=== PATIENT | female | born 2000 | race Hispanic/Latino ===

== ENCOUNTER 2024-05-15 16:10 | Inpatient (IN) | payer OTHER, SELFPAY ==
[2024-05-15] MEDS ORDERED: ACETAMINOPHEN 500 MG TAB ONE (16:59)
[2024-05-15] MEDS ORDERED: NA CHLORIDE 0.9% 1,000 ML ONE ×3 (16:59→19:55)
[2024-05-15 17:39] LABS: Absolute Lymphocytes (CBC) 0.9 K/uL (0.7-4.9); Absolute Monocytes 0.6 K/uL (0.1-1.3); Absolute Neutrophil 3.6 K/uL (1.8-8.0); Basophils % 0.4 % (0-1.3); Eosinophils % 0.4 % (0-4.4); Hemoglobin 15.5 g/dL (12.0-15.0); Lymphocytes % 17.4 % (15.3-44.8); MCH 29.9 pg (27.0-35.0); MCHC 33.7 g/dL (32.0-36.0); MCV 88.7 fL (80-100); MPV 8.5 fL (7.6-11.3); Monocytes % 11.7 % (3.3-12.3); Neutrophils % 70.1 % (41.7-73.7); Nucleated Red Blood Cells % 0.5 % (0-0); Platelets 213 thou/uL (152-406); RBC Red Blood Cell Count 5.19 M/uL (3.86-4.86); Red Cell Distribution Width 14.4 % (12.1-15.2)
[2024-05-15 17:40] LABS: PT Prothrombin Time 10.3 SECONDS (9.4-12.5); Protime INR 0.92
[2024-05-15 17:47] LABS: SARS-CoV-2 Antigen CONTROL BLUE LINE VIS/BG OK; SARS-CoV-2 Antigen Rapid Res Negative (Negative)
[2024-05-15] MEDS ORDERED: IBUPROFEN 400 MG TAB ONE (17:52)
[2024-05-15 17:54] LABS: Specific Gravity 1.005 (1.005-1.030); Sqamous Epithelial <5 /HPF (None Seen); Urine Bacteria <20 /HPF (<20); Urine Bilirubin NEGATIVE (Negative); Urine Blood 2+ (Negative); Urine Clarity Clear (Clear); Urine Color Colorless (Yellow); Urine Culture Reflex Order NOT NEEDED; Urine Glucose NEGATIVE (Negative); Urine Ketones TRACE (Negative); Urine Microscopic Reflex YN ORDER UMIC; Urine Nitrite NEGATIVE (Negative); Urine Protein NEGATIVE (Negative); Urine RBC <5 /HPF (None Seen); Urine Urobilinogen Normal (Normal); Urine WBC <5 /HPF (<5); Urine pH 6.5 (5.0-7.0)
[2024-05-15 17:58] LABS: Albumin 3.3 g/dL (3.4-5.0); Albumin/Globulin Ratio 0.6 (1.1-1.8); Anion Gap 10.3 mEq/L (5.0-15.0); Bilirubin Total 0.7 mg/dL (0.2-1.0); Globulin 5.1 g/dL (2.3-3.5); Potassium 3.3 mEq/L (3.5-5.1); Protein, Total 8.4 g/dL (6.4-8.2)
--- NOTE | 2024-05-15 18:16 | RAD REPORT ---
EXAMINATION: ONE VIEW CHEST XR CLINICAL INDICATION: Female, 23 years old.,COUGH TECHNIQUE: Frontal chest projection is submitted. Examination is limited by patient positioning and t echnique. COMPARISON: No prior exam. FINDINGS: The lungs are well inflated and clear. No pneumothorax or sizable effusion. The heart is normal in s ize. Mediastinal contours are unremarkable. IMPRESSION: No acute intrathoracic abnormalities.
[2024-05-15 18:17] LABS: Specific Gravity 1.005 (1.005-1.030)
--- NOTE | 2024-05-15 19:43 | RAD REPORT ---
EXAM: CT CHEST, ABDOMEN AND PELVIS WITH CONTRAST CLINICAL INDICATION: Female, 23 years old. fever, tachycardic, mottled TECHNIQUE: CT chest, abdomen, and pelvis was performed, following the administration of contrast, as per department protocol. Axial, sagittal and coronal reconstructions were obtained. One or more of the following dose reduction techniques were used: Automated exposure control, adjustment of the mA a nd/or kV according to patient size, and/or iterative reconstruction. Unless otherwise specified, incidental findings do not require dedicated imaging follow-up. COMPARISON: No prior exam. FINDINGS: LUNGS AND AIRWAYS: Left lingular small opacity favoring atelectasis. No other evidence of airspace or interstitial process. No nodules. PLEURA: No pleural effusion. No pneumothorax. MEDIASTINUM AND LYMPH NODES: No mediastinal mass or fluid collection. Normal size mediastinal, hilar, and axillary lymph nodes. THORACIC AORTA: Normal caliber and configuration. PULMONARY ARTERIES: Normal caliber. OSSEOUS STRUCTURES AND CHEST WALL: Intact. LIVER: Normal in size and contour. No focal lesion or biliary dilitation. BILIARY SYSTEM: No suspicious abnormalities. PANCREAS: No mass, ductal dilation, or demar-pancreatic fluid. SPLEEN: Normal size. No focal lesion. ADRENALS: Normal; no mass. KIDNEYS AND URETERS: Normal size and contour. No hydronephrosis. URINARY BLADDER: Normal contour. GASTROINTESTINAL TRACT: No bowel obstruction, free air, significant free fluid or abscess. APPENDIX: No inflammatory changes in region of appendix. LYMPH NODES: No lymphadenopathy. ABDOMINAL AORTA AND OTHER VESSELS: Normal caliber aorta and IVC. MUSCULOSKELETAL: No acute or suspicious osseous abnormality. IMPRESSION: No acute or significant abnormalities seen in the chest, abdomen or pelvis.
[2024-05-15] MEDS: Levofloxacin 750mg IV 750 MG/150 ML BAG IV ONE (19:45)
--- NOTE | 2024-05-15 19:52 | EDPHYS ---
Physician Documentation [facility] Name: Danielle Pedroza Age: 23 yrs Sex: Female : 2000 Arrival Date: 05/15/2024 Time: 16:10 Bed 5 Private MD: ED Physician Terrance Dudley HPI: 05/15 18:15 This 23 yrs old Female presents to ER via Wheelchair with complaints of General rn Weakness, Fever, Cough, Pain All Over. 18:15 The patient reports fever, not measured (subjective). Onset: The symptoms/episode rn began/occurred 1 month(s) ago. Modifying factors: there are no obvious modifying factors. Severity of symptoms: At their worst the symptoms were moderate in the emergency department the symptoms are unchanged. The patient has not experienced similar symptoms in the past. Patient reports sick for 1 month. At the beginning of the month began with viral illness, upper respiratory infection, rest of family was sick as well. The rest of the family got better and she never fully recovered. Now reports worsening of symptoms over the last week or 2 with myalgias, malaise, subjective fever and chills, cough, back pain and generalized weakness.. 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 - Infectious Disease History:: Denies. - Social history:: Smoking status: Patient denies any tobacco usage or history of. - Family history:: not pertinent. - Hospitalizations: : No recent hospitalization is reported. ROS: 18:15 Constitutional: Positive for fever and chills Eyes: Negative for injury, pain, redness, rn and discharge, Neck: Negative for injury, pain, and swelling, Cardiovascular: Negative for chest pain, palpitations, and edema, Respiratory: Negative for shortness of breath, cough, wheezing, and pleuritic chest pain, Abdomen/GI: Negative for abdominal pain, nausea, vomiting, diarrhea, and constipation, Back: Positive for lower back pain MS/Extremity: Negative for injury and deformity, Skin: Negative for injury, rash, and discoloration, Neuro: Positive for generalized weakness and malaise Exam: 17:19 ECG was reviewed by the Attending Physician. rn 18:15 Constitutional: This is a well developed, well nourished patient who is awake, alert, rn and in no acute distress. Head/Face: Normocephalic, atraumatic. ENT: Dry mucous membranes, dry lips Neck: No meningismus Cardiovascular: Tachycardic, regular Respiratory: Mild tachypnea Abdomen/GI: Soft, nontender Back: No CVA tenderness or spinal percussion tenderness Skin: Mottled extremities MS/ Extremity: Pulses equal, no cyanosis. Neuro: Awake and alert, GCS 15, oriented to person, place, time, and situation. Cranial nerves II-XII grossly intact. Motor strength 4/5 in all extremities. Sensory grossly intact. Vital Signs: 16:36 BP 131 / 100; Pulse 160; Resp 28; Temp 99.1; Pulse Ox 100% ; Weight 52.62 kg; Height 5 db ft. 0 in. ; 17:00 BP 125 / 92; Pulse 123; Resp 30 S; Pulse Ox 100% on R/A; aa5 17:47 BP 122 / 91; Pulse 109; Resp 22 S; Temp 98.5(O); Pulse Ox 100% on R/A; aa5 18:14 BP 123 / 86; Pulse 103; Resp 22 S; Pulse Ox 98% on R/A; aa5 19:30 BP 124 / 90; Pulse 105; Resp 32; Temp 98; Pulse Ox 96% ; Pain 5/10; bm8 20:58 BP 122 / 88; Pulse 118; Resp 20; Temp 98; Pulse Ox 100% ; Pain 4/10; bm8 16:36 Body Mass Index 22.48 (52.62 kg, 153 cm) db 19:30 Pain Scale: Adult bm8 20:58 Pain Scale: Adult bm8 Nat Coma Score: 19:30 Eye Response: spontaneous(4). Motor Response: obeys commands(6). Verbal Response: bm8 oriented(5). Total: 15. 20:58 Eye Response: spontaneous(4). Motor Response: obeys commands(6). Verbal Response: bm8 oriented(5). Total: 15. MDM: 16:30 Medical Screening Exam initiated rn 19:03 Data reviewed: vital signs, nurses notes. ED course: Patient signed out to me by. ec2 Physician, in brief patient arrives today for feeling unwell. Patient with initial tachycardia that is since resolved, initial lactic acid. Clinically patient is improving. Sepsis reassessment complete.. 19:09 ED course: Lab work remarkable for reassuring CBC, slight hypokalemia noted on ec2 metabolic profile. UA is noninfectious appearing. Lactic acid with slight elevation 2.5. Flu and COVID testing negative. Strep testing negative. Chest x-ray shows no acute intrathoracic process. Pending CT imaging and u/s. 19:51 ED course: CPK with marked elevation. Will admit for rhabdomyolysis. CT imaging ec2 negative. Discussed with hospitalist, pending admission.. 05/15 16:31 Order name: Flu; Complete Time: 18:19 rn 05/15 16:31 Order name: Strep; Complete Time: 18:19 05/15 16:31 Order name: SARS-COV-2 Antigen Rapid; Complete Time: 18:19 05/15 16:43 Order name: Blood Culture Adult (2) 05/15 16:43 Order name: CBC with Diff; Complete Time: 18:19 05/15 16:43 Order name: CMP; Complete Time: 18:19 rn 05/15 16:43 Order name: Protime (+inr); Complete Time: 18:19 rn 05/15 16:43 Order name: Ptt, Activated; Complete Time: 18:19 05/15 16:43 Order name: Urinalysis w/ reflexes; Complete Time: 18:19 05/15 16:57 Order name: Blood Culture Adult (2) 05/15 16:57 Order name: Lactate w/ 2H reflex if indic.; Complete Time: 18:19 05/15 17:09 Order name: Test, Urine; Complete Time: 18:41 rn 05/15 17:43 Order name: Throat Culture EDCT 05/15 17:50 Order name: CK; Complete Time: 19:19 rn 05/15 17:57 Order name: Ghost Lactate-NO COLLECT Timer; Complete Time: 20:18 EDCT 05/15 19:09 Order name: Hepatitis Panel; Complete Time: 13:47 ec2 05/15 20:15 Order name: Urinalysis w/ reflexes EDCT 05/15 20:15 Order name: CBC with Automated Diff EDCT 05/15 20:15 Order name: CBC with Automated Diff; Complete Time: 13:47 [facility] 05/15 20:15 Order name: Comprehensive Metabolic Panel [facility] 05/15 20:15 Order name: Comprehensive Metabolic Panel; Complete Time: 13:47 EDCT 05/15 20:15 Order name: Creatine Phosphokinase [facility] 05/15 20:15 Order name: Creatine Phosphokinase; Complete Time: 13:47 [facility] 05/15 20:15 Order name: Creatine Phosphokinase [facility] 05/15 20:15 Order name: Creatine Phosphokinase [facility] 05/15 20:27 Order name: Lactate Sepsis 2 HR Follow-up; Complete Time: 13:47 [facility] 05/15 16:31 Order name: XRAY Chest (1 view); Complete Time: 18:19 rn 05/15 17:32 Order name: CT Chest, Abdomen, Pelvis - W/Contrast; Complete Time: 19:45 rn 05/15 18:42 Order name: US Abdomen Limited; Complete Time: 20:18 rn 05/15 16:43 Order name: Accucheck; Complete Time: 17:03 rn 05/15 16:43 Order name: Cardiac monitoring; Complete Time: 17:03 rn 05/15 16:43 Order name: EKG - Nurse/Tech; Complete Time: 16:58 rn 05/15 16:43 Order name: IV Saline Lock - Large Bore; Complete Time: 17:03 rn 05/15 16:43 Order name: Labs collected and sent; Complete Time: 17:03 rn 05/15 16:43 Order name: O2 Per Protocol; Complete Time: 17:03 rn 05/15 16:43 Order name: O2 Sat Monitoring; Complete Time: 17:03 rn 05/15 16:43 Order name: Vital Signs; Complete Time: 17:03 rn EC:19 Rate is 133 beats/min. Rhythm is regular. QRS [place] is Normal. OK interval is normal. rn QRS interval is normal. QT interval is normal. No Q waves. T waves are Normal. No ST changes noted. Clinical impression: Sinus tachycardia. Interpreted by me. Reviewed by me. Administered Medications: 17:11 Drug: Acetaminophen PO 1000 mg PO once Route: PO; aa5 18:13 Follow up: Response: No adverse reaction aa5 17:11 Drug: NS 0.9% IV 1000 ml IV at 1000 ml once; to be given as a bolus over 60 minutes aa5 Route: IV; Rate: 1000 ml; Site: right antecubital; 18:13 Follow up: IV Status: Completed infusion; IV Intake: 1000ml aa5 18:13 Drug: NS 0.9% IV 1000 ml IV at 1000 ml once; to be given as a bolus over 60 minutes aa5 Route: IV; Rate: 1000 ml; Site: right antecubital; 21:00 Follow up: Response: No adverse reaction; IV Status: Completed infusion; IV Intake: bm8 1000ml 18:13 Drug: Ibuprofen PO 800 mg PO once Route: PO; aa5 19:53 Follow up: Response: No adverse reaction bm8 20:10 Drug: levofloxacin IVPB 750 mg 150 ml IVPB once over 90 mins Volume: 150 ml; Route: bm8 IVPB; Infused Over: 90 mins; Site: right antecubital; 21:00 Follow up: Response: No adverse reaction; IV Status: Infusion continued upon admission bm8 20:10 Drug: NS 0.9% IV 125 units/hr IV at 1 calculated rate Per protocol; 125mL/hr Route: IV; bm8 Rate: 1 calculated rate; Site: right antecubital; 21:00 Follow up: Response: No adverse reaction; IV Status: Infusion continued upon admission bm8 Disposition Summary: 05/15/24 19:51 Hospitalization Ordered Notes: Hospitalization Status: Inpatient Admission ec2 Provider: Yoan Elizabeth ec2 Location: Telemetry/MedSurg (Inpatient) ec2 Condition: Stable ec2 Problem: new ec2 Symptoms: have improved ec2 Bed/Room Type: Standard ec2 Room Assignment: 209(05/15/24 20:18) rv1 Diagnosis - Rhabdomyolysis ec2 Forms: - Medication Reconciliation Form ec2 - SBAR form ec2 - Leadership Thank You Letter ec2 Signatures: Dispatcher [employer] Stacey Carrasco RN RN iw Nieto, Roman, MD MD rn Calderon, Audri, RN RN aa5 Tania Hernandez rv1 Terrance Dudley MD MD ec2 Jeffery Dumont RN RN bm8 Corrections: (The following items were deleted from the chart) 16:31 16:31 Influenza Screen (A \T\ B)+BA.LAB.BRZ ordered. EDMS EDMS 16:31 16:31 Group A Streptococcus Rapid Sc+BA.LAB.BRZ ordered. EDMS EDMS 16:31 16:31 SARS-COV-2 Antigen Rapid+I.LAB.BRZ ordered. EDMS EDMS 16:31 16:31 Chest Single View+RAD.RAD.BRZ ordered. EDMS EDMS 16:45 16:44 Chest Single View+RAD.RAD.BRZ ordered. EDMS EDMS 17:09 17:09 Test, Urine+UC.LAB.BRZ ordered. EDMS EDMS 17:32 17:32 Chest Abdomen Pelvis W Con+CT.RAD.BRZ ordered. EDMS EDMS 19:10 19:10 Acute Hepatitis Panel+SC.LAB.BRZ ordered. EDMS EDMS 19:21 16:44 LACTATE+C.LAB.BRZ ordered. EDMS EDMS 20:18 19:51 ec2 rv1
--- NOTE | 2024-05-15 19:52 | ER ---
Nurse's Notes [facility] Name: Danielle Pedroza Age: 23 yrs Sex: Female : 2000 Arrival Date: 05/15/2024 Time: 16:10 Bed 5 Private MD: Diagnosis: Rhabdomyolysis Presentation: 05/15 16:36 Chief complaint: Patient states: STATES HAS FEVER, BODY ACHES, JOINT ACHES, SORES IN db MOUTH X 2 WEEKS AND CHEST PAIN TODAY. SEEN BY A DOCTOR ON THURSDAY DX WITH "VIRUS ALL OVER MY BODY". GIVEN VALACYCLOVIR AND PROMETHAZINE. PT IS BREAST FEEDING. NOTED PT SKIN IS MOTTLED AND LIPS ARE DRY. PT APPEARS PALE IN TRIAGE. Coronavirus screen: Client denies travel out of the [place] in the last 14 days. At this time, the client does not indicate any symptoms associated with coronavirus-19. Ebola Screen: Patient negative for fever greater than or equal to 101.5 degrees Fahrenheit, and additional compatible Ebola Virus Disease symptoms Patient denies exposure to infectious person. Patient denies travel to an Ebola-affected area in the 21 days before illness onset. No symptoms or risks identified at this time. Initial Sepsis Screen: Does the patient meet any 2 criteria? HR > 90 bpm. Does the patient have a suspected source of infection? No. Patient's initial sepsis screen is negative. Risk Assessment: Do you want to hurt yourself or someone else? Patient reports no desire to harm self or others. Onset of symptoms was April 29, 2024. 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 db Triage Assessment: 16:47 General: Appears in no apparent distress. uncomfortable, Behavior is cooperative. Pain: iw Denies pain. Neuro: Level of Consciousness is awake, alert, obeys commands, Oriented to person, place, time, situation. Derm: Skin is mottled. 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 - Infectious Disease History:: Denies. - Social history:: Smoking status: Patient denies any tobacco usage or history of. - Family history:: not pertinent. - Hospitalizations: : No recent hospitalization is reported. Screenin:[facility] ED Fall Risk Assessment (Adult) History of falling in the last 3 months, aa5 including since admission No falls in past 3 months (0 pts) Confusion or Disorientation No (0 pts) Intoxicated or Sedated No (0 pts) Impaired Gait No (0 pts) Mobility Assist Device Used No (0 pt) Altered Elimination No (0 pt) Score/Fall Risk Level 0 - 2 = Low Risk Oriented to surroundings, Maintained a safe environment, Educated pt \\T\\ family on fall prevention, incl call for assistance when getting out of bed. Abuse screen: Denies threats or abuse. Tuberculosis screening: No symptoms or risk factors identified. 16:50 Nutritional screening: see GI assessment . aa5 Assessment: 16:50 General: Appears uncomfortable, ill, Behavior is calm, cooperative. Pain: Complains of aa5 pain in whole body Quality of pain is described as aching, Pain began 1 month ago Is continuous, Aggravated by repositioning, weight bearing, movement Noted to be resistant to movement. Neuro: Level of Consciousness is awake, alert, obeys commands, Oriented to person, place, time, situation, Appropriate for age. Cardiovascular: Heart tones S1 S2 present Rhythm is sinus tachycardia. Respiratory: Reports cough that is wet x 1 month ago Airway is patent Respiratory effort is even, unlabored, Respiratory pattern is regular, symmetrical. GI: Abdomen is round non-distended, Bowel sounds present X 4 quads. Abd is soft and non tender X 4 quads. Reports intolerance of fluids, intolerance of food, nausea, due to mouth sores/ulcerations Patient currently denies vomiting. : No signs and/or symptoms were reported regarding the genitourinary system. Denies burning with urination, inability to void, urinary frequency, urgency, Reports menstrual cycle 05/14/2024. EENT: Oral mucosa is dry. Lesions noted. Derm: Skin is dry, Skin is mottled, pale, Skin temperature is cool to all 4 extremities and warm to rest of body. Musculoskeletal: Reports pain in right hand, left hand, right foot, left foot, right arm, left arm, right leg and left leg. 18:14 Neuro: Level of Consciousness is awake, alert, obeys commands, Oriented to person, aa5 place, time, situation. Respiratory: Airway is patent Respiratory effort is even, unlabored, Respiratory pattern is regular, symmetrical. Derm: Skin is dry, Skin is mottled, pale, Skin temperature is cool to extremities. 19:30 Reassessment: Patient appears in no apparent distress at this time. Patient and/or bm8 family updated on plan of care and expected duration. Pain level reassessed. Patient is alert, oriented x 3, equal unlabored respirations, skin warm/dry/pink. General: Appears in no apparent distress. uncomfortable, Behavior is calm, cooperative, appropriate for age. Pain: Complains of pain in back of head and middle back Pain currently is 5 out of 10 on a pain scale. Quality of pain is described as aching, crampy. Neuro: No deficits noted. Level of Consciousness is awake, alert, obeys commands, Oriented to person, place, time, situation, Appropriate for age. Cardiovascular: Heart tones S1 S2 present Capillary refill is sluggish Patient's skin is warm and dry. Rhythm is sinus rhythm. Respiratory: Airway is patent Respiratory effort is even, unlabored, Respiratory pattern is regular, symmetrical, Breath sounds are clear bilaterally. GI: No signs and/or symptoms were reported involving the gastrointestinal system. : No signs and/or symptoms were reported regarding the genitourinary system. EENT: No signs and/or symptoms were reported regarding the EENT system. Derm: Skin is dry, Skin is mottled, pale, Skin temperature is cool. Musculoskeletal: Reports weakness in generalized pain in back of head and middle back. 20:58 Reassessment: Patient appears in no apparent distress at this time. No changes from bm8 previously documented assessment. Patient and/or family updated on plan of care and expected duration. Pain level reassessed. Patient is alert, oriented x 3, equal unlabored respirations, skin warm/dry/pink. Patient states feeling better. Patient states symptoms have improved. Vital Signs: 16:36 BP 131 / 100; Pulse 160; Resp 28; Temp 99.1; Pulse Ox 100% ; Weight 52.62 kg; Height 5 db ft. 0 in. ; 17:00 BP 125 / 92; Pulse 123; Resp 30 S; Pulse Ox 100% on R/A; aa5 17:47 BP 122 / 91; Pulse 109; Resp 22 S; Temp 98.5(O); Pulse Ox 100% on R/A; aa5 18:14 BP 123 / 86; Pulse 103; Resp 22 S; Pulse Ox 98% on R/A; aa5 19:30 BP 124 / 90; Pulse 105; Resp 32; Temp 98; Pulse Ox 96% ; Pain 5/10; bm8 20:58 BP 122 / 88; Pulse 118; Resp 20; Temp 98; Pulse Ox 100% ; Pain 4/10; bm8 16:36 Body Mass Index 22.48 (52.62 kg, 153 cm) db 19:30 Pain Scale: Adult bm8 20:58 Pain Scale: Adult bm8 Nat Coma Score: 19:30 Eye Response: spontaneous(4). Motor Response: obeys commands(6). Verbal Response: bm8 oriented(5). Total: 15. 20:58 Eye Response: spontaneous(4). Motor Response: obeys commands(6). Verbal Response: bm8 oriented(5). Total: 15. ED Course: 16:11 Patient arrived in ED. am2 16:30 León Pinto MD is Attending Physician. rn 16:41 Triage completed. db 16:47 Samantha Wise, RN is Primary Nurse. aa5 16:50 Arm band placed on Patient placed in an exam room. db 16:50 Patient has correct armband on for positive identification. Placed in gown. Bed in low aa5 position. Call light in reach. Side rails up X2. Adult w/ patient. Client placed on continuous cardiac and pulse oximetry monitoring. NIBP monitoring applied. court monitor on. Pulse ox on. NIBP on. 16:58 EKG done, by ED staff, reviewed by León Pinto MD. cc6 17:00 First set of blood cultures drawn by me. aa5 17:05 Inserted saline lock: 20 gauge in right antecubital area, using aseptic technique. aa5 Flushed with 10 mL NS. 17:10 Initial lab(s) drawn, by me, sent to lab. Second set of blood cultures drawn by me. aa5 17:13 COVID swab sent to lab. Flu and/or RSV swab sent to lab. Strep swab sent to lab. aa5 17:28 XRAY Chest (1 view) In Process Unspecified. EDMS 17:48 No provider procedures requiring assistance completed. aa5 19:00 Attending Physician role handed off by León Pinto MD ec2 19:00 Terrance Dudley MD is Attending Physician. ec2 19:00 Report given to AMANDA Gil and AMANDA Kim. aa5 19:08 CT Chest, Abdomen, Pelvis - W/Contrast In Process Unspecified. EDMS 19:24 US Abdomen Limited In Process Unspecified. EDMS 19:51 Yoan Elizabeth MD is Hospitalizing Provider. ec2 20:58 Provided Education on: need for admission. bm8 20:58 Patient admitted, IV remains in place. bm8 Administered Medications: 17:11 Drug: Acetaminophen PO 1000 mg PO once Route: PO; aa5 18:13 Follow up: Response: No adverse reaction aa5 17:11 Drug: NS 0.9% IV 1000 ml IV at 1000 ml once; to be given as a bolus over 60 minutes aa5 Route: IV; Rate: 1000 ml; Site: right antecubital; 18:13 Follow up: IV Status: Completed infusion; IV Intake: 1000ml aa5 18:13 Drug: NS 0.9% IV 1000 ml IV at 1000 ml once; to be given as a bolus over 60 minutes aa5 Route: IV; Rate: 1000 ml; Site: right antecubital; 21:00 Follow up: Response: No adverse reaction; IV Status: Completed infusion; IV Intake: bm8 1000ml 18:13 Drug: Ibuprofen PO 800 mg PO once Route: PO; aa5 19:53 Follow up: Response: No adverse reaction bm8 20:10 Drug: levofloxacin IVPB 750 mg 150 ml IVPB once over 90 mins Volume: 150 ml; Route: bm8 IVPB; Infused Over: 90 mins; Site: right antecubital; 21:00 Follow up: Response: No adverse reaction; IV Status: Infusion continued upon admission bm8 20:10 Drug: NS 0.9% IV 125 units/hr IV at 1 calculated rate Per protocol; 125mL/hr Route: IV; bm8 Rate: 1 calculated rate; Site: right antecubital; 21:00 Follow up: Response: No adverse reaction; IV Status: Infusion continued upon admission bm8 Medication: 17:30 VIS not applicable for this client. aa5 Intake: 18:13 IV: 1000ml; Total: 1000ml. aa5 21:00 IV: 1000ml; Total: 2000ml. bm8 Outcome: 19:51 Decision to Hospitalize by Provider. ec2 20:58 Admitted to Med/surg accompanied by tech, via stretcher, room 209, with chart, bm8 20:58 Condition: stable 20:58 Instructed on follow up and referral plans. Demonstrated understanding of instructions, follow-up care, medications, 21:01 Patient left the ED. bm8 Signatures: Dispatcher [employer] EDStacey Forte RN RN iw Nieto, Roman, MD MD rn Calderon, Audri, RN RN aa5 Judy Almonte am2 Araceli Laguerre RN RN Terrance Richmond MD MD ec2 Jeffery Dumont RN RN bm8 Carmen Kelly cc6 Corrections: (The following items were deleted from the chart) 16:50 16:36 Chief complaint: Patient states: STATES HAS FEVER, BODY ACHES, JOINT ACHES, SORES db IN MOUTH X 2 WEEKS. SEEN BY A DOCTOR ON THURSDAY DX WITH "VIRUS ALL OVER MY BODY". GIVEN VALACYCLOVIR AND PROMETHAZINE. db 16:57 16:36 Chief complaint: Patient states: STATES HAS FEVER, BODY ACHES, JOINT ACHES, SORES db IN MOUTH X 2 WEEKS AND CHEST PAIN TODAY. SEEN BY A DOCTOR ON THURSDAY DX WITH "VIRUS ALL OVER MY BODY". GIVEN VALACYCLOVIR AND PROMETHAZINE. PT IS db 17:31 16:45 Abuse screen: Denies threats or abuse. aa5 [facility] 17:31 16:45 Nutritional screening: No deficits noted. aa5 aa 17:31 16:45 Tuberculosis screening: No symptoms or risk factors identified. aa5 aa5 17:31 16:45 [facility] ED Fall Risk Assessment (Adult) History of falling in the last 3 months, aa5 including since admission No falls in past 3 months (0 pts) Confusion or Disorientation No (0 pts) Intoxicated or Sedated No (0 pts) Impaired Gait No (0 pts) Mobility Assist Device Used No (0 pt) Altered Elimination No (0 pt) Score/Fall Risk Level 0 - 2 = Low Risk Oriented to surroundings, Maintained a safe environment, Educated pt \\T\\ family on fall prevention, incl call for assistance when getting out of bed, aa5 21:00 20:59 Response: No adverse reaction; IV Status: Completed infusion; IV Intake: 125ml [id number]
--- NOTE | 2024-05-15 20:12 | P.HP ---
Certification for Inpatient Patient admitted to: Inpatient With expected LOS: >2 Midnights Practitioner: I am a practitioner with admitting privileges, knowledge of patient current condition, hospital course, and medical plan of care. Services: Services provided to patient in accordance with Admission requirements found in Title 42 Section 412.3 of the Code of Federal Regulations Patient History Date of Service: 05/15/24 Reason for admission: Rhabdomyolysis History of Present Illness: 23 yrs old Female with no significant past medical history brought to ER with g eneralized weakness fever cough and generalized body pain which has been going on for the last few days and has been progressively getting worse and was brought to ER. Patient states that she has been sick for the last 1 month intermittently and was started as insidiously as a viral illness like an upper respiratory tract infection along with the family who is also sick at this time time. Rest of the body became better but she continues to have body pain and generalized weakness associated with some fever and has some cough which is mucoid expectoration. Patient has severe muscle pains. Denies any chest pain or shortness of breath. Denies any nausea vomiting or diarrhea. Patient was assessed in the ER and was found to have rhabdomyolysis and was admitted for further management. She has also noticed to have elevated liver enzymes as well. Allergies ampicillin Allergy (Verified 05/15/24 20:31) Itching/Hives/Rash Home medications list reviewed: Yes Home Medications: Unobtainable 05/15/24 - Past Medical/Surgical History Past Medical History: Reviewed- Non-Contributory Past Surgical History: Reviewed- Non-Contributory - Family History Mother -: Cancer Notes: female cancer - Social History Smoking Status: Never smoker Review of Systems 10-point ROS is otherwise unremarkable Physical Examination - Vital Signs Temperature: 99.1 F Blood Pressure: 130/98 Pulse: 142 Respirations: 18 Pulse Ox (%): 95 - Physical Exam General: Alert, Oriented x3, Mild distress HEENT: Atraumatic, Normocephalic Neck: Supple Respiratory: Clear to auscultation bilaterally, Crackles/rales Cardiovascular: Normal S1 S2 Capillary refill: <2 Seconds Gastrointestinal: Soft and benign, W/out hepatosplenomegaly Musculoskeletal: No clubbing, No swelling Integumentary: No rashes Neurological: Normal speech, Normal strength at 5/5 x4 extr Lymphatics: No axilla or inguinal lymphadenopathy - Studies Laboratory Data (last 24 hrs) 05/15/24 05/15/24 05/15/24 17:10 17:10 17:10 WBC 5.20 Hgb 15.5 H Hct 46.0 H Plt Count 213 PT 10.3 INR 0.92 APTT 32.0 Sodium 135 L Potassium 3.3 L BUN 6 L Creatinine 0.46 L Glucose 95 Total Bilirubin 0.7 AST 459 H ALT 163 H Alkaline Phosphatase 90 Microbiology Data (last 24 hrs): 05/15/24 17:13 Nasopharnyx Influenza Type A Antigen Screen - Final 05/15/24 17:13 Nasopharnyx Influenza Type B Antigen Screen - Final 05/15/24 17:13 Throat Group A Streptococcus Rapid Screen - Final Assessment and Plan - Plan Rhabdomyolysis Aggressive hydration Pain control Monitor CK level daily Elevated LFTs CT did not show any acute changes Will treat ultrasound of the liver Monitor LFTs closely Will get the hepatitis panel Acute febrile illness Lactic acidosis Obtain cultures CT chest,, abdomen pelvis normal Will get a UA and will obtain cultures Start on antibiotic empirically Will change antibiotic as per sensitivity Hypokalemia Hyponatremia Will monitor electrolytes and replace accordingly GI/DVT prophylaxis Advanced directive full code Discharge Plan: Home Plan to discharge in: 48 Hours - Advance Directives Does patient have a Living Will: No Does patient have a Durable POA for Healthcare: No - Code Status/Comfort Care Code Status: Full Code Time Spent Managing Pts Care (In Minutes): 48
--- NOTE | 2024-05-15 20:14 | RAD REPORT ---
EXAMINATION: US Abdomen Exam Limited CLINICAL HISTORY: [facility] MAIN Y fever, abnormal lfts Bed Name: 5 COMPARISON: None. TECHNIQUE: Limited upper abdominal grayscale and color flow sonographic images. FINDINGS: Gallbladder: Normal. Reportedly negative sonographic Gardiner's sign. Bile ducts: No intrahepatic or extrahepatic biliary dilatation. Common bile duct measures 1 mm. Liver: Visualized portions of the liver demonstrate normal echogenicity with no suspicious findings. Fluid: No ascites. IMPRESSION: No abnormalities on right upper quadrant ultrasound.
[2024-05-15] MEDS: NA CHLORIDE 0.9% 1,000 ML IV SCH (21:00)
[2024-05-15] MEDS: IBUPROFEN 400 MG TAB PO PRN (23:27)
[2024-05-16] MEDS: METHYLPREDNISOLONE 125 MG INJ IV ONE (03:26)
[2024-05-16] MEDS: MORPHINE 2 MG/ML SYR IV PRN (03:26)
[2024-05-16] MEDS: Ringers Lactate 1,000 ML IV ONE (03:27)
[2024-05-16 04:04] LABS: Absolute Monocytes 0.5 K/uL (0.1-1.3); Absolute Neutrophil 1.7 K/uL (1.8-8.0); Basophils % 0.6 % (0-1.3); Eosinophils % 0.9 % (0-4.4); Hematocrit 35.2 % (36.0-45.0); Hemoglobin 11.9 g/dL (12.0-15.0); Lymphocytes % 30.7 % (15.3-44.8); MCH 29.7 pg (27.0-35.0); MCHC 33.8 g/dL (32.0-36.0); MCV 87.9 fL (80-100); Monocytes % 16.2 % (3.3-12.3); Neutrophils % 51.6 % (41.7-73.7); Platelets 183 thou/uL (152-406); Red Cell Distribution Width 14.3 % (12.1-15.2)
[2024-05-16 04:18] LABS: C-Reactive Protein 10.8 mg/L (<3.00); Ferritin 496.4 ng/mL (8-252)
[2024-05-16 04:20] LABS: D-Dimer 0.989 FEUug/mL (0-0.500); PTT, Activated Partial Thromb 31.3 SECONDS (24.3-36.9)
[2024-05-16 04:58] LABS: ALT/SGPT 118 U/L (13-56); AST/SGOT 358 U/L (15-37); Albumin 2.5 g/dL (3.4-5.0); Albumin/Globulin Ratio 0.7 (1.1-1.8); Alkaline Phosphatase 67 U/L (45-117); Anion Gap 8.9 mEq/L (5.0-15.0); BUN Blood Urea Nitrogen 4 mg/dL (7-18); Bicarbonate 24 mEq/L (21-32); Bilirubin Total 0.7 mg/dL (0.2-1.0); Creatine Phosphokinase 7763 U/L (26-192); Globulin 3.7 g/dL (2.3-3.5); Glucose Level 84 mg/dL (74-106); Magnesium 1.8 mg/dL (1.6-2.4); Phosphorus 2.9 mg/dL (2.5-4.9); Potassium 2.9 mEq/L (3.5-5.1); Protein, Total 6.2 g/dL (6.4-8.2); Sodium Level 139 mEq/L (136-145)
[2024-05-16 04:59] LABS: Glomerular Filtration Rate 159 ml/min (=/>90)
[2024-05-16 05:24] LABS: Hepatitis B Core IgM Nonreactive (Nonreactive); Hepatitis B surface AG Interp. Nonreactive (Nonreactive); Hepatitis C Virus Ab Nonreactive (Nonreactive)
[2024-05-16 05:25] LABS: HBsAG Nonreactive Report Report
[2024-05-16] MEDS: KCL 20 MEQ/100 mL IVPB 20 MEQ/100 ML BAG IV SCH (05:42)
--- NOTE | 2024-05-16 07:27 | RAD REPORT ---
Exam:C Spine Ap/Lat CLINICAL INDICATION: Neck pain Findings: No fracture or dislocation seen. No significant bone or joint abnormalities displayed
--- NOTE | 2024-05-16 07:27 | RAD REPORT ---
Exam:Knee Left 2 View HISTORY: Left knee pain FINDINGS: No fracture or dislocation seen No significant bone or joint abnormality is displayed
--- NOTE | 2024-05-16 07:37 | RAD REPORT ---
EXAM: Right upper quadrant ultrasound. CLINICAL HISTORY: Elevated liver function tests enzymes COMPARISON: May 15, 2024 FINDINGS: A gallstone is not seen. Gallbladder wall not thickened. Biliary tree normal caliber. Liver has a normal echotexture. An area of focal fatty sparing left lobe of the liver.. Hepatopedal f low IMPRESSION: No significant abnormalities displayed
[2024-05-16] MEDS: FLU (Fluarix Triv) TS24-25(6MOS UP)/PF 45 MCG/0.5 ML Syringe IM ONE (07:45)
[2024-05-16] MEDS: CEFTRIAXONE 1,000 MG in NA CHLORIDE 0.9% 50 ML IVPB SCH (08:35)
[2024-05-16] MEDS: AZITHROMYCIN IV 500 MG in NA CHLORIDE 0.9% 250 ML IVPB SCH (08:37)
[2024-05-16] MEDS: ONDANSETRON 4 MG/2 ML VIAL IV PRN (09:50)
[2024-05-16] MEDS: MAGNESIUM SULFATE 1 gm IVPB 1 GM/100 ML BAG IV ONE (14:08)
--- NOTE | 2024-05-16 16:05 | P.PN ---
Subjective Date of Service: 05/16/24 Chief Complaint: Rhabdomyolysis Patient is complaining of generalized bodily pains. She has had no fever. She reports nausea and has been dry heaving. Physical Examination - Vital Signs Temperature: 98 F Blood Pressure: 121/75 Pulse: 98 Respirations: 16 Pulse Ox (%): 97 - Studies Laboratory Data (last 24 hrs) 05/15/24 05/15/24 05/15/24 17:10 17:10 17:10 WBC 5.20 Hgb 15.5 H Hct 46.0 H Plt Count 213 PT 10.3 INR 0.92 APTT 32.0 Sodium 135 L Potassium 3.3 L BUN 6 L Creatinine 0.46 L Glucose 95 Total Bilirubin 0.7 AST 459 H ALT 163 H Alkaline Phosphatase 90 Microbiology Data (last 24 hrs): 05/15/24 17:13 Nasopharnyx Influenza Type A Antigen Screen - Final 05/15/24 17:13 Nasopharnyx Influenza Type B Antigen Screen - Final 05/15/24 17:13 Throat Group A Streptococcus Rapid Screen - Final Assessment And Plan - Plan Physical examination General: Alert and oriented x3, NAD, HEENT: Anicteric sclera Neck: Supple, no elevated JVD Heart: Heart sounds 1 and 2 normal, regular rhythm, tachycardic, no pedal edema Lungs: Clear to auscultation bilaterally, adequate breath sounds bilaterally, no rhonchi or crackles. Abdomen: Soft, nondistended, nontender, normal bowel sounds. Extremities: No tenderness, no deformity Skin: Normal skin turgor, no rash, no nodules or ulcers. Neuro: No focal motor deficit. Normal speech. Psychiatry: Normal mood, no agitation. Assessment and plan Rhabdomyolysis Elevated LFT Acute febrile illness Lactic acidosis Hyponatremia Hypokalemia Plan: Rhabdomyolysis Elevated LFT Acute febrile illness Lactic acidosis Patient's symptoms preceded by a bout of flulike symptoms Rhabdomyolysis likely secondary to acute viral illness. Acute phase reactants-CRP and ferritin are elevated. Aggressive IV hydration Monitor CK levels daily Monitor renal function Elevated LFT likely related to rhabdomyolysis. Hepatitis panel is unremarkable Lactic acidosis resolved UA is negative for UTI Chest x-ray shows no acute disease. CBC shows increased monocyte differential suggesting viral infection. Supportive measures with analgesics, antiemetics. Hypokalemia Hyponatremia IV NS. Replace potassium IV and orally Monitor and correct electrolytes as needed GI/DVT prophylaxis: Lovenoc Advanced directive: full code
[2024-05-16] MEDS: ENOXAPARIN 40 MG/0.4 ML SQ SCH (17:05)
[2024-05-16 23:14] LABS: Magnesium 1.9 mg/dL (1.6-2.4); Potassium 3.6 mEq/L (3.5-5.1)
[2024-05-17 06:22] LABS: Anion Gap 8.3 mEq/L (5.0-15.0); PT Prothrombin Time 10.8 SECONDS (9.4-12.5); Potassium 3.3 mEq/L (3.5-5.1); Protime INR 1.03
[2024-05-17 06:23] LABS: Absolute Lymphocytes (CBC) 1.3 K/uL (0.7-4.9); Absolute Monocytes 0.8 K/uL (0.1-1.3); Absolute Neutrophil 2.3 K/uL (1.8-8.0); Eosinophils % 0.2 % (0-4.4); Hematocrit 32.5 % (36.0-45.0); Hemoglobin 11.3 g/dL (12.0-15.0); Lymphocytes % 29.6 % (15.3-44.8); MCH 30.6 pg (27.0-35.0); MCHC 34.9 g/dL (32.0-36.0); MCV 87.8 fL (80-100); MPV 8.3 fL (7.6-11.3); Monocytes % 17.9 % (3.3-12.3); Neutrophils % 51.3 % (41.7-73.7); Nucleated Red Blood Cells % 0.1 % (0-0); Platelets 197 thou/uL (152-406); RBC Red Blood Cell Count 3.69 M/uL (3.86-4.86); Red Cell Distribution Width 14.3 % (12.1-15.2)
[2024-05-17] MEDS: POTASSIUM 25 MEQ EFFERV TAB PO ONE (10:16)
[2024-05-17] MEDS: POTASSIUM 25 MEQ EFFERV TAB ONE (12:38)
--- NOTE | 2024-05-17 13:25 | P.PN ---
Date of Service: 05/17/24 Subjective: feeling better today appetite slowly improving no events overnight family updated at bedside reports urine improving - not as dark/red ROS: 10 point ROS as noted above, otherwise negative Physical Exam: GEN: Alert, oriented, NAD, dry/cracked lips CV: Regular rate and rhythm, no edema Pulm: Nonlabored respirations on room air, clear bilaterally ABD: soft, nontender, nondistended Neuro: Normal speech, normal affect Problem List: Rhabdomyolysis, suspect secondary to viral illness Elevated LFTs Lactic acidosis, resolved Hypokalemia Hyponatremia, resolved Rhabdomyolysis, suspect secondary to viral illness Elevated LFTs Lactic acidosis, resolved Patient's symptoms preceded by a bout of flulike symptoms. Rhabdomyolysis likely secondary to acute viral illness. Elevated LFT likely related to rhabdomyolysis - improving Hepatitis panel is unremarkable Lactic acidosis resolved Blood cx (05/15): NGTD CXR negative for any acute findings continue IV fluids Continue to monitor renal function Trend CPK, LFTs. Improving daily Analgesics, antiemetics as needed. Hypokalemia Hyponatremia, improved continue IV fluids Monitor and replete electrolytes as needed improving VTE: Lovenox Code: Full Dispo: Home Pending CPK improves, LFTs improve Time Spent Managing Pts Care (In Minutes): 55
[2024-05-17] MEDS: KCL 20 MEQ/100 mL IVPB 20 MEQ/100 ML BAG IV SCH (14:29)
[2024-05-18] MEDS: ACETAMINOPHEN 325 MG TABLET PO PRN (02:49)
[2024-05-18 05:52] LABS: Albumin 2.4 g/dL (3.4-5.0); Albumin/Globulin Ratio 0.7 (1.1-1.8); Anion Gap 5.7 mEq/L (5.0-15.0); Bilirubin Total 0.5 mg/dL (0.2-1.0); Globulin 3.6 g/dL (2.3-3.5); Magnesium 1.9 mg/dL (1.6-2.4); Potassium 3.7 mEq/L (3.5-5.1)
[2024-05-18] MEDS: KCL 20 MEQ/100 mL IVPB 20 MEQ/100 ML BAG IV SCH (09:11)
--- NOTE | 2024-05-18 10:55 | P.PN ---
Date of Service: 05/18/24 Subjective: pain improving still feeling very tired / run down; body aches/soreness afebrile ROS: 10 point ROS as noted above, otherwise negative Physical Exam: GEN: Alert, oriented, NAD, dry/cracked lips CV: Regular rate and rhythm, no edema Pulm: Nonlabored respirations on room air, clear bilaterally ABD: soft, nontender, nondistended Neuro: Normal speech, normal affect Problem List: Rhabdomyolysis, suspect secondary to viral illness Elevated LFTs Lactic acidosis, resolved Hypokalemia Hyponatremia, resolved Rhabdomyolysis, suspect secondary to viral illness Elevated LFTs Lactic acidosis, resolved Patient's symptoms preceded by a bout of flulike symptoms. Rhabdomyolysis likely secondary to acute viral illness. Elevated LFT likely related to rhabdomyolysis - improving Hepatitis panel is unremarkable Lactic acidosis resolved Blood cx (05/15): NGTD CXR negative for any acute findings continue IV fluids Continue to monitor renal function Trend CPK, LFTs daily Analgesics, antiemetics as needed. continues with sinus tachycardia - with minimal exertion feels more short of breath / winded easily check formal CTA to r/o PE possible post-viral/rhabdo /deconditioning appears euvolemic, doubt seocndary to hypotension at this point, strict i/o's cardio consult check echo Hypokalemia Hyponatremia, improved continue IV fluids Monitor and replete electrolytes as needed improving VTE: Lovenox Code: Full Dispo: Home Pending CPK improves, LFTs improve tachycardia improves Time Spent Managing Pts Care (In Minutes): 55
--- NOTE | 2024-05-18 20:57 | RAD REPORT ---
EXAMINATION: CTA CHEST AORTA CLINICAL INDICATION: Female, 23 years old [facility] MA[facility] r/o PE TECHNIQUE: This examination was performed according to an angiographic protocol with 3D post-processi ng. This involves 3D reconstructions, MIPs, volume rendered images and/or shaded surface rendering. One or more of the following dose reduction techniques were used: Automated exposure control, adjustm ent of the mA and/or kV according to patient size, and/or iterative reconstruction. Unless otherwise specified, incidental findings do not require dedicated imaging follow-up. [id number]. COMPARISON: CT 05/15/24 FINDINGS: LOWER NECK: Visualized thyroid gland and soft tissues are normal. LUNGS AND AIRWAYS: Motion artifact. Subsegmental atelectasis versus scarring in the lingula and later al aspect of the right lower lobe.No suspicious and/or stable pulmonary nodules. PLEURA: No pleural effusion. No pneumothorax. Hemidiaphragms are normally positioned. MEDIASTINUM AND LYMPH NODES: No mediastinal mass or fluid collection. Normal size mediastinal, hilar, and axillary lymph nodes. THORACIC AORTA: No thoracic aortic aneurysm. PULMONARY ARTERIES: HEART: No coronary calcifications.No significant pericardial effusion. OSSEOUS STRUCTURES AND CHEST WALL: UPPER ABDOMEN: No significant abnormalities. IMPRESSION: Normal caliber and configuration of the thoracic aorta without acute changes. No pulmonary embolus.
[2024-05-19 04:56] LABS: Absolute Monocytes 0.7 K/uL (0.1-1.3); Absolute Neutrophil 2.8 K/uL (1.8-8.0); Basophils % 0.7 % (0-1.3); Hematocrit 36.5 % (36.0-45.0); Hemoglobin 12.5 g/dL (12.0-15.0); Lymphocytes % 22.6 % (15.3-44.8); MCH 29.9 pg (27.0-35.0); MCHC 34.3 g/dL (32.0-36.0); MCV 87.1 fL (80-100); MPV 8.5 fL (7.6-11.3); Monocytes % 14.8 % (3.3-12.3); Neutrophils % 60.9 % (41.7-73.7); Nucleated Red Blood Cells % 0.1 % (0-0); Platelets 218 thou/uL (152-406); RBC Red Blood Cell Count 4.19 M/uL (3.86-4.86); Red Cell Distribution Width 14.2 % (12.1-15.2)
[2024-05-19 05:37] LABS: Albumin 2.3 g/dL (3.4-5.0); Albumin/Globulin Ratio 0.6 (1.1-1.8); Anion Gap 11.3 mEq/L (5.0-15.0); Bilirubin Total 0.5 mg/dL (0.2-1.0); C-Reactive Protein 7.91 mg/L (<3.00); Globulin 3.8 g/dL (2.3-3.5); Magnesium 1.8 mg/dL (1.6-2.4); Potassium 3.3 mEq/L (3.5-5.1); Protein, Total 6.1 g/dL (6.4-8.2); Thyroid Stimulating Hormone 2.07 uIU/mL (0.358-3.740)
[2024-05-19] MEDS: POTASSIUM CL SA 10 MEQ TAB PO ONE ×2 (06:41→14:12)
[2024-05-19] MEDS: MAGNESIUM SULFATE 1 gm IVPB 1 GM/100 ML BAG IV ONE ×2 (08:23→15:28)
[2024-05-19] MEDS: NA CHLORIDE 0.9% 1,000 ML IV SCH ×2 (08:24→14:13)
--- NOTE | 2024-05-19 08:42 | P.PN ---
Date of Service: 05/19/24 Subjective: In sinus tachycardia, HR 110s at rest. Up to 140-150s with light activity denies chest pain but reports feeling more tired with movement left leg pain ~same as when came in - at anterior tibial area abdominal/flank pain improving afebrile ROS: 10 point ROS as noted above, otherwise negative Physical Exam: GEN: Alert, NAD, dry/cracked lips CV: Sinus Tachycardia, no edema Pulm: Nonlabored respirations on room air, clear bilaterally ABD: soft, nontender, nondistended MSK: tenderness to moderate palpation of anterior tibial area of left leg, L thigh muscles, lower back, arms Neuro: Normal speech, normal affect Problem List: Rhabdomyolysis, suspect secondary to viral illness Elevated LFTs Lactic acidosis, resolved Sinus Tachycardia Hypokalemia Hyponatremia, resolved Rhabdomyolysis, suspect secondary to viral illness Elevated LFTs Lactic acidosis, resolved Patient's symptoms preceded by a bout of flulike symptoms. Rhabdomyolysis likely secondary to acute viral illness. Elevated LFT likely related to rhabdomyolysis Hepatitis panel is unremarkable Lactic acidosis resolved Blood cx (05/15): NGTD Continue to monitor renal function Analgesics, antiemetics as needed. continue IV fluids Trend CPK, LFTs daily. CPK, LFTs worse 05/19 Nephrology consulted thyroid levels WNL SARAHY pending, check RF Sinus Tachycardia Sinus Tachy on Telemetry. No arrhythmias noted. possible post-viral/rhabdo /deconditioning appears euvolemic, doubt secondary to hypovolemia at this point CTA chest negative for PE or any acute findings. Cardiology consulted Echo ordered to eval Trend troponins. Monitor on Telemetry Start metoprolol 25 mg BID Hypokalemia Hyponatremia, improved continue IV fluids Monitor and replete electrolytes as needed improving VTE: Lovenox Code: Full Dispo: Home Pending CPK improves, LFTs improve tachycardia improves Time Spent Managing Pts Care (In Minutes): 55
--- NOTE | 2024-05-19 09:53 | P.CNS ---
Date of Consult: 05/19/24 Chief Complaint: Rhabdomyolysis History of Present Illness: Patient with no significant PMH presented with generalized weakness, viral illness, rhabdomyolysis, cardiology was consulted for sinus tachycardia, patient denies chest pain, no SOB, only report palpitations on exertion. Allergies ampicillin Allergy (Verified 05/15/24 20:31) Itching/Hives/Rash Home medications list reviewed: Yes Home Medications: NK [No Home Meds] 05/16/24 - Past Medical/Surgical History Diabetic: No -: Vaginal Delivery - Family History Mother Medical History: Cancer Notes: female cancer - Social History Alcohol use: No CD- Drugs: No Caffeine use: Yes Place of Residence: Home Review of Systems 10-point ROS is otherwise unremarkable Physical Examination Temp Pulse Resp BP Pulse Ox 97.8 F 109 H 18 115/73 98 05/19/24 08:00 05/19/24 08:00 05/19/24 08:00 05/19/24 08:00 05/19/24 08:00 General: Alert, In no apparent distress HEENT: Atraumatic, PERRLA, Mucous membr. moist/pink, EOMI, Sclerae nonicteric Neck: Supple, 2+ carotid pulse no bruit, No LAD, Without JVD or thyroid abnormality Respiratory: Clear to auscultation bilaterally, Normal air movement Cardiovascular: Regular rate/rhythm, Normal S1 S2 Gastrointestinal: Normal bowel sounds, No tenderness Musculoskeletal: No tenderness Integumentary: No rashes Neurological: Normal gait, Normal speech, Normal tone, Normal affect Lymphatics: No axilla or inguinal lymphadenopathy - Problems (1) Sinus tachycardia Current Visit: Yes Status: Acute Plan: patient tele was reviewed, only shows sinus tachycardia, no other arrhythmias seen. recommend starting metoprolol 25 mg po BID Continue hydration and monitor over tele get echo (2) Rhabdomyolysis Current Visit: Yes Status: Acute Plan: continue IV hydration. patient might need to follow up with rheumatology as outpatient.
[2024-05-19] MEDS: METOPROLOL TAR 25 MG TAB PO ONE (10:22)
[2024-05-19 11:33] LABS: Anti-Nuclear Antibody Screen Negative (Negative)
--- NOTE | 2024-05-19 12:10 | EKG ---
Test Date: 2024-05-15 Test Time: 16:54:41 Coordinator Of Library Services: JASWINDER MEASUREMENT RESULTS: Intervals: Rate: 133 WY: 136 QRSD: 66 QT: 296 QTc: 440 [place]: P: 59 WY: 136 QRS: 39 T: 14 INTERPRETIVE STATEMENTS: Sinus tachycardia Otherwise normal ECG No previous ECG available for comparison Electronically Signed On 05-19-24 12:07:51 TELEPHONE [employer]PER[employer] SUPERVISOR by Andrew Hoffman
[2024-05-19] MEDS: NA CHLORIDE 0.9% 1,000 ML IV ONE (14:13)
[2024-05-19 14:36] LABS: Magnesium 2.3 mg/dL (1.6-2.4); Thyroid Stimulating Hormone 2.51 uIU/mL (0.358-3.740)
--- NOTE | 2024-05-19 15:26 | CON ---
Date of Consultation: 05/19/2024 Reason For Consultation: Elevated BUN and creatinine. History Of Present Illness: This is a 23-year-old female without any significant past medical histor y. Apparently, patient had upper respiratory infection a couple of weeks ago. For that reason, chary ent started using home remedy with Tylenol and ibuprofen 2-3 tablets daily. Patient came to the hosp ital complaining from progressive chest tightness and muscle cramps. Found to have rhabdomyolysis. The patient was started on hydration. Upon arrival to the hospital, CK above 7000. After hydration, CK down to 6010, today bounced back to 8000. For that reason, we have been consulted. The patient has been on ibuprofen during the hospitalization. The patient had hypokalemia and hypomagnesemia. TSH was checked and there is no hypothyroidism. Past Medical History: Negative. Past Surgical History: Negative. Allergies: TO AMPICILLIN. Home Medications: Include Tylenol, ibuprofen. Family History: Positive for cancer. Social History: Denied smoking. Denied drinking. Denied drugs abuse. Review of Systems: Head and Neck: No red eye. No ear pain. GI: No nausea. No vomiting. : No polyuria. No dysuria. No hematuria. LIFE SCIENTIST: No vaginal discharge. Respiratory: Has no shortness of breath. Cardiovascular: No chest pain. Endocrine: No polydipsia. Skin: No rash. Neuro: Has muscle cramp. Musculoskeletal: Muscle cramp and weakness. Physical Examination: General: When I saw the patient, the patient sitting in the chair. Vital Signs: Blood pressure 113 /78, pulse of 109. Chest: Clear to auscultation. Extremities: No edema. Neurologic: Alert. No focality. Laboratory Data: WBC 4.6, hemoglobin 12.5. Sodium 134, potassium 3.3, bicarb 25, BUN 6, creatinine 0.2, calcium 7.9, phosphorus 4, magnesium 1.8. CK 8605, albumin 2.3, corrected calcium is 9.1. TSH 2.07. Urinalysis: Negative for infection. SARAHY negative. Hepatitis was negative. Current Medications: In the hospital include ibuprofen 400 q.6, metoprolol, Lovenox, IV fluid at 50 per hour. Assessment And Plan: 1.Rhabdomyolysis secondary to upper respiratory, bounced back. I am going to increase IV fluid to 1 25 normal saline and we will bolus the patient. We will continue aggressive hydration. I am going t o go ahead and give the patient another dose of magnesium and we will replenish the potassium aggress ively. 2.Hypokalemia, hypomagnesemia. We will replenish as above. 3.Unprovoked rhabdomyolysis, questionable if it is secondary to upper respiratory. Hypothyroidism h as been ruled out. I am going to send for urine drug screen and send for rheumatoid factor. We will continue aggressive hydration and we will follow up. 4.Hyponatremia, depletional. Continue hydration. TORO/ANTONI Voice ID: [id number] Report ID: [id number]
[2024-05-19] MEDS: METOPROLOL TAR 25 MG TAB PO SCH (18:01)
[2024-05-20 04:51] LABS: Absolute Eosinophils 0.1 K/uL (0-0.5); Absolute Monocytes 0.5 K/uL (0.1-1.3); Absolute Neutrophil 2.1 K/uL (1.8-8.0); Basophils % 0.7 % (0-1.3); Eosinophils % 2.1 % (0-4.4); Hematocrit 33.6 % (36.0-45.0); Hemoglobin 11.7 g/dL (12.0-15.0); Lymphocytes % 26.6 % (15.3-44.8); MCH 30.5 pg (27.0-35.0); MCHC 34.8 g/dL (32.0-36.0); MCV 87.6 fL (80-100); MPV 8.3 fL (7.6-11.3); Monocytes % 14.3 % (3.3-12.3); Neutrophils % 56.3 % (41.7-73.7); Nucleated Red Blood Cells % 0.1 % (0-0); Platelets 208 thou/uL (152-406); RBC Red Blood Cell Count 3.84 M/uL (3.86-4.86); Red Cell Distribution Width 14.5 % (12.1-15.2)
[2024-05-20 05:08] LABS: ALT/SGPT 187 U/L (13-56); AST/SGOT 494 U/L (15-37); Albumin 2.1 g/dL (3.4-5.0); Albumin/Globulin Ratio 0.6 (1.1-1.8); Alkaline Phosphatase 70 U/L (45-117); Anion Gap 8.6 mEq/L (5.0-15.0); BUN Blood Urea Nitrogen 3 mg/dL (7-18); Bicarbonate 25 mEq/L (21-32); Bilirubin Total 0.4 mg/dL (0.2-1.0); C-Reactive Protein 5.42 mg/L (<3.00); Globulin 3.6 g/dL (2.3-3.5); Glucose Level 102 mg/dL (74-106); Magnesium 1.9 mg/dL (1.6-2.4); Phosphorus 3.4 mg/dL (2.5-4.9); Potassium 3.6 mEq/L (3.5-5.1); Protein, Total 5.7 g/dL (6.4-8.2); Sodium Level 138 mEq/L (136-145)
[2024-05-20 05:22] VITALS: BMI 22.8
[2024-05-20 05:28] LABS: Creatine Phosphokinase 8973 U/L (26-192); Glomerular Filtration Rate 159 ml/min (=/>90)
[2024-05-20 07:19] LABS: Rheumatoid Factor NEG (NEG)
[2024-05-20] MEDS: POTASSIUM CL SA 10 MEQ TAB PO ONE (09:03)
--- NOTE | 2024-05-20 11:35 | P.PN ---
Date of Service: 05/20/24 Subjective: heart rate improved to 80-90s at rest feels more swollen; mostly in face and lower extremities, otherwise feeling overall improvement breathing okay on room air leg pain improving afebrile all started with sore throat, then had fever.s chills in early april general malaise, minimal appetite continued rest of the month, then ~May developed the lower leg / body aches, oral blisters ROS: 10 point ROS as noted above, otherwise negative Physical Exam: GEN: Alert, NAD, dry/cracked lips CV: Regular Rate and rhythm, no edema Pulm: Nonlabored respirations on room air, clear bilaterally ABD: soft, nontender, nondistended MSK: tenderness to moderate palpation of anterior tibial area of left leg, L thigh muscles, lower back, arms Neuro: Normal speech, normal affect Problem List: Rhabdomyolysis, suspect secondary to viral illness Elevated LFTs Lactic acidosis, resolved Sinus Tachycardia Hypokalemia, resolved Hyponatremia, resolved Rhabdomyolysis, suspect secondary to viral illness Elevated LFTs Lactic acidosis, resolved Patient's symptoms preceded by a bout of flulike symptoms. Rhabdomyolysis likely secondary to acute viral illness. Elevated LFT likely related to rhabdomyolysis Hepatitis panel is unremarkable Lactic acidosis resolved Blood cx (05/15): NGTD Continue to monitor renal f unction Analgesics, antiemetics as needed. CPK, LFTs initially improving, now uptrending last 48hrs. seems to be plateauing Nephrology consulted continue IV fluids; increased 05/19 per nephro thyroid levels WNL SARAHY negative RF negative. symptomatic improving may need albumin/lasix Sinus Tachycardia Sinus Tachy on Telemetry. No arrhythmias noted. possible post-viral/rhabdo /deconditioning appears euvolemic, doubt secondary to hypovolemia at this point CTA chest negative for PE or any acute findings. Cardiology consulted Echo ordered to eval Troponin Negative. Monitor on Telemetry continue metoprolol 25 mg BID Hypokalemia, resolved Hyponatremia, resolved Monitor and replete electrolytes as needed VTE: Lovenox Code: Full Dispo: Home, ~2 days Pending CPK improves, LFTs improve Time Spent Managing Pts Care (In Minutes): 55
[2024-05-20] MEDS: ALBUMIN HUMAN 25% 100 ML IV SCH (15:43)
[2024-05-20] MEDS: FUROSEMIDE 20 MG/ 2ML VIAL IV ONE (16:58)
[2024-05-20] MEDS: CODEINE 30MG/APAP 300MG TAB PO PRN (21:44)
--- NOTE | 2024-05-21 01:26 | PN ---
Subjective: No overnight events. Her CPK is stable. Complaining of lower extremity heaviness. Sta ariana she has edema this morning. Will give 1 dose of Lasix. Objective: Vital Signs: Temperature 97.5, pulse rate 108, blood pressure 135/83. General: Awake and alert, not in distress. Neck: Supple. No elevated JVD. Heart: Regular rate and rhythm. Normal S1, S2. Chest: Clear to auscultation bilaterally. No rales or wheezes. Abdomen: Soft, nontender. Extremities: Trace edema. Laboratory Data: White count 3.7, hemoglobin 11.5. Sodium 138, potassium 3.6. AST 500, ALT 190. CP K 8900. CRP 5.4. Assessment And Plan: This is a 23-year-old woman with no significant past medical history, was admit ariana to the ER for generalized weakness, found to have rhabdomyolysis. 1.Rhabdomyolysis with elevated CRP, possibly due to viral. Need to rule out polymyositis and dermat omyositis. Continue IV fluid. Give Lasix if showed sign of fluid overload. We will send for arlet teague. 2.Elevated liver function tests due to rhabdomyolysis. Continue to monitor as above. Hepatitis palomino el negative. 3.Hypomagnesemia and hypokalemia. Continue to monitor and replace as needed. Thanks for allowing me to participate in the patient's care. Total time spent 55 minutes, including documentation, reviewing labs, and placing orders. KIRSTY/ANTONI Voice ID: [id number] Report ID: [id number]
[2024-05-21] MEDS: HYDROMORPHONE HCL 1 MG/ML INJ IV ONE (03:28)
[2024-05-21 06:52] LABS: ALT/SGPT 180 U/L (13-56); AST/SGOT 480 U/L (15-37); Albumin 2.3 g/dL (3.4-5.0); Albumin/Globulin Ratio 0.7 (1.1-1.8); Alkaline Phosphatase 60 U/L (45-117); Anion Gap 9.2 mEq/L (5.0-15.0); BUN Blood Urea Nitrogen 5 mg/dL (7-18); Bicarbonate 27 mEq/L (21-32); Bilirubin Total 0.5 mg/dL (0.2-1.0); C-Reactive Protein 5.11 mg/L (<3.00); Creatine Phosphokinase 8821 U/L (26-192); Globulin 3.3 g/dL (2.3-3.5); Glucose Level 89 mg/dL (74-106); Magnesium 1.8 mg/dL (1.6-2.4); Phosphorus 4.1 mg/dL (2.5-4.9); Potassium 3.2 mEq/L (3.5-5.1); Protein, Total 5.6 g/dL (6.4-8.2); Sodium Level 138 mEq/L (136-145)
[2024-05-21 06:53] LABS: Glomerular Filtration Rate 159 ml/min (=/>90); Hematocrit 32.8 % (36.0-45.0); Hemoglobin 11.2 g/dL (12.0-15.0); MCH 30.3 pg (27.0-35.0); MCV 89.1 fL (80-100); MPV 8.3 fL (7.6-11.3); Platelets 217 thou/uL (152-406); RBC Red Blood Cell Count 3.68 M/uL (3.86-4.86); Red Cell Distribution Width 14.5 % (12.1-15.2)
[2024-05-21] MEDS: POTASSIUM CL SA 10 MEQ TAB PO ONE (08:16)
[2024-05-21] MEDS: MAGNESIUM SULFATE 1 gm IVPB 1 GM/100 ML BAG IV ONE (08:16)
--- NOTE | 2024-05-21 09:33 | P.PN ---
Date of Service: 05/21/24 Subjective: feeling slightly better today denies new / worsening problems urinating without issues Heart rate stable in 80-90s at rest, up to 100s with activity ROS: 10 point ROS as noted above, otherwise negative Physical Exam: GEN: Alert, NAD, dry/cracked lips CV: Regular Rate and rhythm Pulm: Nonlabored respirations on room air, clear bilaterally ABD: soft, nontender, nondistended MSK: mild tenderness of b/l anterior tibial area Neuro: Normal speech, normal affect Problem List: Rhabdomyolysis, suspect secondary to viral illness Elevated LFTs Lactic acidosis, resolved Sinus Tachycardia Hypokalemia, resolved Hyponatremia, resolved Rhabdomyolysis, suspect secondary to viral illness Elevated LFTs Lactic acidosis, resolved Patient's symptoms preceded by a bout of flulike symptoms. All started with sore throat, then had fever/chills in early april General malaise, minimal appetite continued rest of the month, then ~May developed the lower leg / body aches, oral blisters Rhabdomyolysis likely secondary to acute viral illness. Elevated LFT likely related to rhabdomyolysis Hepatitis panel is unremarkable Blood cx (05/15): NGTD Continue to monitor renal f unction Analgesics, antiemetics as needed. thyroid levels WNL SARAHY negative RF negative. Nephrology is following Trend CPK, LFTs. Slightly improved 05/21 continue IV fluids; increased 05/19 per nephro albumin/lasix given , will give another dose along with IV fluids symptoms improving Sinus Tachycardia Sinus Tachy on Telemetry. No arrhythmias noted. possible post-viral/rhabdo /deconditioning appears euvolemic, doubt secondary to hypovolemia at this point CTA chest negative for PE or any acute findings. Cardiology consulted Echo completed; pending report Troponin Negative. Monitor on Telemetry continue metoprolol 25 mg BID Heart rate stable in 80-90s at rest, up to 100s with activity Hypokalemia, resolved Hyponatremia, resolved Monitor and replete electrolytes as needed VTE: Lovenox Code: Full Dispo: Home, ~1-2 days Pending CPK improves, LFTs improve Time Spent Managing Pts Care (In Minutes): 55
[2024-05-21] MEDS: FUROSEMIDE 20 MG/ 2ML VIAL IV ONE (14:29)
[2024-05-21] MEDS: FUROSEMIDE 40 MG/4 ML VIAL IV ONE (16:18)
[2024-05-21] MEDS: NA CHLORIDE 0.9% 1,000 ML IV SCH (16:18)
[2024-05-22 06:55] LABS: ALT/SGPT 187 U/L (13-56); AST/SGOT 546 U/L (15-37); Albumin 2.2 g/dL (3.4-5.0); Albumin/Globulin Ratio 0.7 (1.1-1.8); Alkaline Phosphatase 63 U/L (45-117); Anion Gap 9.2 mEq/L (5.0-15.0); BUN Blood Urea Nitrogen 4 mg/dL (7-18); Bicarbonate 27 mEq/L (21-32); Bilirubin Total 0.5 mg/dL (0.2-1.0); Creatine Phosphokinase 11380 U/L (26-192); Globulin 3.1 g/dL (2.3-3.5); Glomerular Filtration Rate 159 ml/min (=/>90); Glucose Level 88 mg/dL (74-106); Magnesium 1.8 mg/dL (1.6-2.4); Phosphorus 3.3 mg/dL (2.5-4.9); Potassium 3.2 mEq/L (3.5-5.1); Protein, Total 5.3 g/dL (6.4-8.2); Sodium Level 138 mEq/L (136-145)
[2024-05-22] MEDS: MAGNESIUM SULFATE 1 gm IVPB 1 GM/100 ML BAG IV ONE (08:17)
[2024-05-22] MEDS: POTASSIUM CL SA 10 MEQ TAB PO ONE (08:17)
[2024-05-22] MEDS: NA CHLORIDE 0.9% 1,000 ML IV SCH (09:43)
--- NOTE | 2024-05-22 09:57 | P.PN ---
Date of Service: 05/22/24 Subjective: no significant change overnight feels ~same as yesterday tired urinating without issues ROS: 10 point ROS as noted above, otherwise negative Physical Exam: GEN: Alert, NAD CV: Regular Rate and rhythm, intermittent tachy Pulm: Nonlabored respirations on room air, clear bilaterally ABD: soft, nontender, nondistended MSK: mild tenderness of b/l anterior tibial area Neuro: Normal speech, normal affect Problem List: Rhabdomyolysis, suspect secondary to viral illness vs ?myositis Elevated LFTs Lactic acidosis, resolved Sinus Tachycardia Hypokalemia, resolved Hyponatremia, resolved Rhabdomyolysis, suspect secondary to viral illness vs ?myositis Elevated LFTs Lactic acidosis, resolved Patient's symptoms preceded by a bout of flulike symptoms. All started with sore throat, then had fever/chills in early april General malaise, minimal appetite continued rest of the month, then ~May developed the lower leg / body aches, oral blisters Unclear Etiology. Rhabdo possibly secondary to acute viral illness vs myositis Elevated LFT likely related to rhabdomyolysis Hepatitis panel is unremarkable Blood cx (05/15): NGTD Continue to monitor renal function Analgesics, antiemetics as needed. SARAHY negative RF negative. Thyroid levels WNL. CPK, LFTs uptrending Not responding well to fluids. Given minimal improvement, and worsening CPK, will treat for possible myositis/dermatomyositis aldolase pending; could take up to several days. Discussed with nephrology, IV fluids increased to 200 ml/hr (05/22) per nephro s/p albumin/lasix (05/20), IV lasix x1 (05/21) Monitor closely start prednisone 60 mg daily to empirically treat myositis Sinus Tachycardia Sinus Tachy on Telemetry. No arrhythmias noted. possible post-viral/rhabdo /deconditioning appears euvolemic, doubt secondary to hypovolemia at this point CTA chest negative for PE or any acute findings. Cardiology consulted Echo completed; pending report Troponin Negative. Monitor on Telemetry continue metoprolol 25 mg BID Heart rate stable in 80-90s at rest, up to 100s with activity Hypokalemia, resolved Hyponatremia, resolved Monitor and replete electrolytes as needed VTE: Lovenox Code: Full Dispo: Home, ~ 2 days Pending CPK improves, LFTs improve Time Spent Managing Pts Care (In Minutes): 55
[2024-05-22] MEDS: predniSONE 20 MG TAB PO SCH (10:24)
[2024-05-23 06:05] LABS: ALT/SGPT 176 U/L (13-56); AST/SGOT 483 U/L (15-37); Albumin 2.1 g/dL (3.4-5.0); Albumin/Globulin Ratio 0.7 (1.1-1.8); Alkaline Phosphatase 59 U/L (45-117); Anion Gap 6.5 mEq/L (5.0-15.0); BUN Blood Urea Nitrogen 6 mg/dL (7-18); Bicarbonate 26 mEq/L (21-32); Bilirubin Total 0.4 mg/dL (0.2-1.0); Creatine Phosphokinase 8989 U/L (26-192); Globulin 3.1 g/dL (2.3-3.5); Glucose Level 90 mg/dL (74-106); Magnesium 1.9 mg/dL (1.6-2.4); Potassium 3.5 mEq/L (3.5-5.1); Protein, Total 5.2 g/dL (6.4-8.2); Sodium Level 139 mEq/L (136-145)
[2024-05-23 06:09] LABS: Glomerular Filtration Rate 159 ml/min (=/>90)
--- NOTE | 2024-05-23 07:11 | ECHO ---
HEIGHT: 5 ft 2 in WEIGHT: 125 lb 1.6 oz DATE OF STUDY: 05/20/[address]: Navid Pinto MD 2-DIMENSIONAL: YES M.MODE: YES DOPPLER: YES COLOR FLOW: YES TDS: NO PORTABLE: YES DEFINITY: NO BUBBLE STUDY: NO DIAGNOSIS: TACHYCARDIA, DYSPNEA CARDIAC HISTORY: CATHERIZATION: NO SURGERY: NO PROSTHETIC VALVE: NO PACEMAKER: NO MEASUREMENTS (cm) DIASTOLIC (NORMALS) SYSTOLIC (NORMALS) IVSd 0.8 (0.6-1.2) LA Diam 2.1 (1.9-4.0) LVEF 69% LVIDd 4.1 (3.5-5.7) LVIDs 2.5 (2.0-3.5) %FS 38% LVPWd 0.8 (0.6-1.2) Ao Diam 2.5 (2.0-3.7) 2 DIMENSIONAL ASSESSMENT: RIGHT ATRIUM: NORMAL LEFT ATRIUM: NORMAL RIGHT VENTRICLE: NORMAL LEFT VENTRICLE: NORMAL TRICUSPID VALVE: NORMAL MITRAL VALVE: NORMAL PULMONIC VALVE: NORMAL AORTIC VALVE: NORMAL PERICARDIAL EFFUSION: TRIVIAL AORTIC ROOT: NORMAL LEFT VENTRICULAR WALL MOTION: NORMAL. DOPPLER/COLOR FLOW: NORMAL. COMMENTS: 1. NORMAL LEFT VENTRICULAR EJECTION FRACTION 55-60%. 2. NORMAL WALL MOTION. 3. NORMAL DIASTOLIC FUNCTION. TECHNOLOGIST: JOSE JESUS
--- NOTE | 2024-05-23 07:23 | P.PN ---
Date of Service: 05/23/24 Subjective: denies any new / worsening problems reported some mild increased facial swelling after steroids/ fluids yesterday otherwise doing okay back/flank pain resolved lower extremity pains improving, not as severe. more swelling today afebrile ROS: 10 point ROS as noted above, otherwise negative Physical Exam: GEN: Alert, NAD CV: Regular Rate and rhythm, intermittent tachy with minimal exertion Pulm: Nonlabored respirations on room air, clear bilaterally ABD: soft, nontender, nondistended MSK: mild tenderness of b/l anterior tibial area Neuro: Normal speech, normal affect no rash Problem List: Rhabdomyolysis, suspect secondary to viral myositis Elevated LFTs Lactic acidosis, resolved Sinus Tachycardia Hypokalemia, resolved Hyponatremia, resolved Rhabdomyolysis, suspect secondary to viral myositis Elevated LFTs Lactic acidosis, resolved Patient's symptoms preceded by a bout of flulike symptoms. All started with sore throat, then had fever/chills in early april General malaise, minimal appetite continued rest of the month, then ~May developed the lower leg / body aches, oral blisters Suspect rhabdo possibly secondary to viral myositis Didn't improve or respond well to IVF after ~1 week of IV hydration. symptoms, labs now improving after starting prednisone (05/22) and increasing fluid rate Elevated LFTs likely related to rhabdomyolysis Continue to monitor renal function SARAHY negative RF negative. Thyroid levels WNL. continue prednisone 60 mg daily to empirically treat myositis Aldolase pending; could take up to several days. IV fluids increased to 200 ml/hr (05/22) per nephro Nephrology is following CPK, LFTs now improving after prednisone Sinus Tachycardia Sinus Tachy on Telemetry. No arrhythmias noted. possible post-viral/rhabdo /deconditioning appears euvolemic, doubt secondary to hypovolemia at this point CTA chest negative for PE or any acute findings. Cardiology consulted Echo (05/18): normal EF and wall motion. Troponin Negative. Monitor on Telemetry continue metoprolol 25 mg BID Heart rate stable in 80-90s at rest, up to 100s with activity Hypokalemia, resolved Hyponatremia, resolved Monitor and replete electrolytes as needed VTE: Lovenox Code: Full Dispo: Home, ~ 2 days Pending CPK improves, LFTs improve Time Spent Managing Pts Care (In Minutes): 55
[2024-05-23] MEDS: FUROSEMIDE 40 MG/4 ML VIAL IV ONE (14:58)
--- NOTE | 2024-05-23 23:02 | PN ---
Date of Progress Note: 05/23/2024 Chief Complaint: Rhabdomyolysis, elevated CK level. Subjective: The patient denies abdominal pain. Denies muscle aches today. Denies nausea, vomiting. Physical Examination: Lungs: Clear to auscultation bilaterally. Heart: S1, S2. Abdomen: Soft. Extremities: No edema. Impression And Plan: The patient is 23-year-old woman with no significant past medical history. The patient was admitted to emergency room because of generalized weakness and she was found to have bailee vated CK level and rhabdomyolysis. 1.Rhabdomyolysis is likely due to viral cause. The patient needs workup to rule out polymyositis an d dermatomyositis. Plan is to continue IV fluids and give Lasix sparingly for fluid overload only. 2.Elevated liver function tests, AST, ALT are elevated due to rhabdomyolysis. Hepatitis panel was c hecked and was negative. 3.Hypomagnesemia, hypokalemia. Monitor electrolytes. Continue supplementation. Monitor phosphorus level and adjust supplementation accordingly. JONY/MODL Voice ID: [id number] Report ID: [id number]
[2024-05-24] MEDS: MORPHINE 2 MG/ML SYR IV ONE (02:47)
[2024-05-24 05:55] LABS: ALT/SGPT 184 U/L (13-56); AST/SGOT 494 U/L (15-37); Albumin 2.1 g/dL (3.4-5.0); Albumin/Globulin Ratio 0.7 (1.1-1.8); Alkaline Phosphatase 59 U/L (45-117); Anion Gap 7.4 mEq/L (5.0-15.0); BUN Blood Urea Nitrogen 9 mg/dL (7-18); Bicarbonate 26 mEq/L (21-32); Bilirubin Total 0.4 mg/dL (0.2-1.0); Creatine Phosphokinase 8993 U/L (26-192); Globulin 3.1 g/dL (2.3-3.5); Glucose Level 93 mg/dL (74-106); Magnesium 1.7 mg/dL (1.6-2.4); NT PRO-BNP 41 pg/mL (<125); Phosphorus 3.1 mg/dL (2.5-4.9); Potassium 3.4 mEq/L (3.5-5.1); Protein, Total 5.2 g/dL (6.4-8.2); Sodium Level 139 mEq/L (136-145)
[2024-05-24 05:59] LABS: C-Reactive Protein < 2.90 mg/L (<3.00); Glomerular Filtration Rate 159 ml/min (=/>90)
[2024-05-24] MEDS: POTASSIUM CL SA 10 MEQ TAB PO ONE (08:29)
[2024-05-24] MEDS: MAGNESIUM SULFATE 1 gm IVPB 1 GM/100 ML BAG IV ONE (08:29)
--- NOTE | 2024-05-24 15:55 | P.PN ---
Subjective Date of Service: 05/24/24 Chief Complaint: Rhabdomyolysis Patient has no new complaint Patient is tolerating diet. She states she is eager to go home. Physical Examination - Vital Signs Temperature: 97.8 F Blood Pressure: 140/82 Pulse: 84 Respirations: 18 Pulse Ox (%): 99 Assessment And Plan - Plan Physical Exam: GEN: Alert, NAD CV: Regular Rate and rhythm, Pulm: Nonlabored respirations on room air, clear to auscultation bilaterally ABD: soft, nontender, nondistended MSK: No tenderness or swelling. Neuro: Normal speech, normal affect no rash Problem List: Rhabdomyolysis, suspect secondary to viral myositis Elevated LFTs Lactic acidosis, resolved Sinus Tachycardia Hypokalemia, resolved Hyponatremia, resolved Rhabdomyolysis, suspect secondary to viral myositis Elevated LFTs Lactic acidosis, resolved Suspect rhabdo possibly secondary to viral myositis Improving with IV hydration and steroid. Elevated LFTs likely related to rhabdomyolysis Renal function has been stable. SARAHY negative RF negative. Thyroid levels WNL. continue prednisone 60 mg daily to empirically treat myositis Aldolase pending. Nephrology is following Monitor CPK and LFT. Sinus Tachycardia Sinus tachycardia. Heart rate improved. Patient appears euvolemic. CTA chest negative for PE or any acute findings. Cardiology input appreciated Echo (05/18): normal EF and wall motion. Troponin Negative. continue metoprolol 25 mg BID Continue telemetry. Hypokalemia, resolved Hyponatremia, resolved Monitor and replete electrolytes as needed VTE: Lovenox Code: Full Dispo: Home.
[2024-05-25 01:45] VITALS: O2SAT 99
[2024-05-25 05:34] LABS: Anion Gap 5.4 mEq/L (5.0-15.0); BUN Blood Urea Nitrogen 8 mg/dL (7-18); Bicarbonate 28 mEq/L (21-32); Creatine Phosphokinase 8887 U/L (26-192); Glucose Level 79 mg/dL (74-106); Potassium 3.4 mEq/L (3.5-5.1); Sodium Level 139 mEq/L (136-145)
[2024-05-25 05:39] LABS: Glomerular Filtration Rate 159 ml/min (=/>90)
[2024-05-25] MEDS: POTASSIUM 25 MEQ EFFERV TAB PO ONE (09:14)
[2024-05-25 16:38] VITALS: BP 120/71; TEMP 97.4
--- NOTE | 2024-05-25 17:31 | P.DS ---
Admission Date: 05/15/24 Discharge Date: 05/25/24 Disposition: ROUTINE DISCHARGE Discharge Condition: FAIR Reason for Admission: Rhabdomyolysis Brief History of Present Illness: 23 yrs old Female with no significant past medical history brought to ER with generalized weakness, fever cough and generalized body pain which has been going on for a few days and has been progressively getting worse and was brought to ER. Patient reported being sick for last 1 month intermittently. She stated symptoms started as insidiously with upper respiratory tract symptoms. She reported contact with a family member with upper respiratory symptoms. along with the family who is also sick at this time time. She describes fever and severe muscle pains. She was suspected to have viral infection and was prescribed valacyclovir prior to presentation. Patient did not take the valacyclovir because she is breast-feeding. Patient was assessed in the ER and was found to have rhabdomyolysis and was admitted for further management. She has also noticed to have elevated liver enzymes as well. Hospital Course: Diagnosis Rhabdomyolysis, suspect secondary to viral myositis Elevated LFTs Lactic acidosis, resolved Sinus Tachycardia Hypokalemia, resolved Hyponatremia, resolved Patient was admitted to the medical floor and the following medical problems addressed: Rhabdomyolysis, suspect secondary to viral myositis Elevated LFTs Lactic acidosis, resolved Rhabdo suspected to be ruled secondary to viral myositis CK levels improved from 11,000 to 8000 with IV hydration and steroid, Elevated LFTs likely related to rhabdomyolysis Renal function has been stable. SARAHY negative RF negative. Thyroid levels WNL. Scleroderma antibody Scl-70 is negative Patient treated with prednisone 60 mg daily to empirically treat myositis Aldolase and other autoimmune screening pending. Patient's symptoms overall, she is evaluated by nephrology and deemed stable. She will follow-up with nephrology for further evaluation of autoimmune polymyositis. Sinus Tachycardia Heart rate improved. Patient appears euvolemic. CTA chest negative for PE or any acute findings. Cardiology evaluated patient. Echo (05/18): normal EF and wall motion. Troponin Negative. Patient placed on metoprolol 25 mg BID Hypokalemia, resolved Hyponatremia, resolved Vital Signs/Physical Exam: Temp Pulse Resp BP Pulse Ox 97.4 F 101 H 18 120/71 99 05/25/24 16:00 05/25/24 16:00 05/25/24 16:00 05/25/24 16:00 05/25/24 16:00 General: Alert, In no apparent distress, Oriented x3 HEENT: Mucous membr. moist/pink, Sclerae nonicteric Neck: Supple, JVD not distended Respiratory: Clear to auscultation bilaterally, Normal air movement Cardiovascular: Regular rate/rhythm, Normal S1 S2, Edema (Bilateral lower extremities.) Gastrointestinal: Normal bowel sounds, Soft and benign, Non-distended, No tenderness Musculoskeletal: No erythema Integumentary: Other (Mottled skin of bilateral thigh.) Neurological: Normal speech, Normal strength at 5/5 x4 extr, Cranial nerves 3-12 intact Laboratory Data at Discharge: WBC 3.50 thou/uL (4.3-10.9) L 05/21/24 05:20 Hgb 11.2 g/dL (12.0-15.0) L 05/21/24 05:20 Hct 32.8 % (36.0-45.0) L 05/21/24 05:20 Plt Count 217 thou/uL (152-406) 05/21/24 05:20 PT 10.8 SECONDS (9.4-12.5) 05/17/24 04:28 INR 1.03 05/17/24 04:28 APTT Cancelled 05/16/24 Unknown Sodium 139 mEq/L (136-145) 05/25/24 04:29 Potassium 4.3 mEq/L (3.5-5.1) D 05/25/24 16:44 BUN 8 mg/dL (7-18) 05/25/24 04:29 Creatinine < 0.25 mg/dL (0.55-1.02) L 05/25/24 04:29 Glucose 79 mg/dL (74-106) 05/25/24 04:29 Uric Acid 3.0 mg/dL (2.6-6.0) 05/16/24 03:23 Phosphorus 3.1 mg/dL (2.5-4.9) 05/24/24 04:54 Magnesium 2.0 mg/dL (1.6-2.4) 05/25/24 04:29 Total Bilirubin 0.4 mg/dL (0.2-1.0) 05/24/24 04:54 AST 494 U/L (15-37) H 05/24/24 04:54 ALT 184 U/L (13-56) H 05/24/24 04:54 Alkaline Phosphatase 59 U/L (45-117) 05/24/24 04:54 Home Medications: Metoprolol Tartrate [Lopressor*] 25 mg PO BID 6AM 6PM #60 tab 05/25/24 predniSONE [Prednisone*] 60 mg PO DAILY #9 tab 05/25/24 New Medications: Metoprolol Tartrate [Lopressor*] 25 mg PO BID 6AM 6PM #60 tab predniSONE [Prednisone*] 60 mg PO DAILY #9 tab Diet: Regular Activity: Ad medina Followup: Tan Elizabeth MD [ACTIVE - CAN ADMIT] - (1 week. Please the office for lab tests- BMP, CPK levels next week before your clinic visit in 1 week.) NONE,NONE [Primary Care Provider] - Time spent managing pt's care (in minutes): 38
--- NOTE | 2024-05-25 23:15 | PN ---
Date of Progress Note: 05/25/2024 Subjective: The patient was admitted to the hospital with rhabdomyolysis, unknown etiology. After h ydration, kidney function stayed stable. CK continued to trend up, then plateaued, did not go down. The patient is complaining of muscle cramp. Otherwise, no other symptoms. Physical Examination: Vital Signs: When I saw the patient, blood pressure 120/71, pulse of 101. Chest: Clear to auscultation. Heart: S1, S2. Regular. Abdomen: Soft, nontender. Extremities: Trace edema. Neurologic: Alert. No focality. Laboratory Data: Hemoglobin 11.2. Sodium 139, potassium 3.4, bicarb 28, BUN 8, creatinine 0.2, calc ium 8.2. CK 8887. Current Medications: Include: 1.IV fluid. 2.Prednisone. 3.Metoprolol. Assessment And Plan: 1.Rhabdomyolysis, unknown etiology. The patient's serology was negative. Waiting for cardiolipin a nd complement. Hepatitis was negative. 2.I am going to have the patient cleared from the renal standpoint for discharge planning. The chary ent is going to need rheumatology workup to evaluate her rhabdomyolysis. 3.Hyponatremia secondary to depletional, status post hydration, resolved. 4.Hypokalemia. We will supplement. TORO/ANTONI Voice ID: [id number] Report ID: [id number]
[2024-05-26 12:55] LABS: Complement C3 95 mg/dL (83-193)
[2024-05-26 21:10] LABS: Anti-Cardiolipin IgG Antibody <2.0 GPL-U/mL (<20.0); Anti-Cardiolipin IgM Antibody <2.0 MPL-U/mL (<20.0)
[2024-05-27 13:10] LABS: Abnormal Protein Band 1 REPORT; Albumin, (SPE) 2.4 g/dL (3.8-4.8); Alpha-1-Globulins 0.3 g/dL (0.2-0.3); Alpha-2-Globulins 0.6 g/dL (0.5-0.9); Beta 1 Globulin 0.3 g/dL (0.4-0.6); Gamma Globulins 0.9 g/dL (0.8-1.7); INTERPRETATION REPORT; Total Protein 4.8 g/dL (6.1-8.1)
[2024-05-27 19:23] LABS: Immunofixation Electrophoresis Normal pattern.
[2024-05-30 02:28] LABS: Beta Globulin 24 HR Urine 0 %; Creatinine 24 Hour Urine 0.79 g/24 h (0.50-2.15); Gamma Globulin, 24hr Urine 0 %; Interpretation: REPORT; Protein/Crea Ratio in g REPORT; Protein/Crea Ratio in mg REPORT; Urine Albumin 24 Hours 0 %; Urine Alpha-1-Globulin, 24Hr 0 %; Urine Alpha-2-Globulins, 24 Hr 0 %; Urine PEP Abn Protein Band1 REPORT; Urine Total Volume 24 Hours 5120 mL
== END 2024-05-25 19:25 | disposition home or self-care (01) | DRG 351 ==
LOC: ER 16:10 → 2ND 20:11
PROVIDERS: ADMIT Family Medicine; ATTEND Internal Medicine
DX: M62.82 Rhabdomyolysis (principal); E87.6 Hypokalemia; E87.20 Acidosis, unspecified; E87.1 Hypo-osmolality and hyponatremia; E83.42 Hypomagnesemia; B97.89 Other viral agents as the cause of diseases classified elsewhere; R00.0 Tachycardia, unspecified; R74.01 Elevation of levels of liver transaminase levels; Z88.1 Allergy status to other antibiotic agents; Z11.52 Encounter for screening for COVID-19
CPT/HCPCS: 36415; 71045; 71260; 71275; 72040; 74177; 76705; 80048; 80053; 80074; 81001; 81025; 82085; 82550; 82728; 83605; 83735; 83880; 83883; 84100; 84132; 84145; 84165; 84166; 84439; 84443; 84484; 84550; 85025; 85027; 85379; 85610; 85730; 86038; 86140; 86147; 86160; 86235; 86334; 86430; 87040; 87070; 87081; 87804; 87811; 93005; 93306; 96361; 96365; 99285; J0696; J1171; J1650; J1940; J2270; J2405; J2919; J3475; J3480; J7030; J7050; J7120; J7512; P9047; Q9967

== ENCOUNTER 2024-05-29 21:13 | Inpatient (IN) | payer OTHER ==
--- OUTSIDE RECORDS SUMMARY | 2024-05-29 21:16 | XMS REPORT | Continuity of Care Document ---
Author Name Unknown Address [address] [place] [address] [facility] thconnect Address [address] [place] [address] Care Team Providers Care Information Assistant Name Role Phone Valarie Romero Primary Care Physicia n Marimar Jean Attending Clinician [phone] Payers Payer Name Policy Type Policy Number Effective Date Expirati on Date Source Allergies, Adverse Reactions, Alerts Allergy Name Allergy Type Status Severity Reaction(s) Onset Date Inactive Date Treating Clinician Comments Source Ampicill in Propensi ty to adverse reaction s Active Hives 10-04 00:00: 00 [facility] PENICILL IN DRUG INGREDI Active Med Unknown-Cmnt 10-04 00:00: 00 [facility] AMPICILL IN DRUG INGREDI Active Hives 10-04 00:00: 00 [facility] NO KNOWN ALLERGIE S Drug Class Active [facility] Social History Social Habit Start Date Stop Date Quantity Comments [facility] Alcoholic [facility] intake 2023-10-06 00:00:00 2023-10-06 00:00:00 Lifetime non-drinker (finding) [facility] Tobacco use and exposure 2023-10-05 00:00:00 2023-10-05 00:00:00 Smokeless tobacco non-user [facility] History of Social function 2023-10-05 00:00:00 2023-10-05 00:00:00 [facility] Sex assigned at 2000 00:00:00 2000 00:00:00 [facility] Smoking Status Start Date Stop Date Source Never smoked tobacco [facility] Medications Ordered Medication Name Filled Medication Name Start Date Stop Date Current Medication? Ordering Clinician Indication Dosage Frequency Signature (SIG) Comments Components Source norethindro ne 0.35 mg tablet 10-04 00:00: 00 Yes [id number] 1{tbl} Take 1 tablet by mouth daily. [facility] Vital Signs Vital Name Observation Time Observation Value Comments S our Systolic blood pressure 2023-10-05 19:20:00 137 mm[Hg] [facility] Diastolic blood pressure 2023-10-05 19:20:00 88 mm[Hg] [facility] Heart rate 2023-10-05 19:20:00 70 /min [facility] Body temperature 2023-10-05 19:20:[address] [facility] Respiratory rate 2023-10-05 19:20:00 18 /min [facility] Body height 2023-10-05 19:20:00 157.5 cm [facility] Body weight 2023-10-05 19:20:00 59.693 kg [facility] BMI 2023-10-05 19:20:00 24.07 kg/m2 [facility] Procedures Procedure Date / Time Performed Performing Clinicia n Source POCT TEST 2023-10-05 20:00:[address] [facility] Encounters Start Date/Time End Date/Time Encounter Type Admission Type Attending Clinicians Care Facility Care Department Encounter ID Source 2023-10-05 14:00:00 2023-10-05 16:53:20 Office Visit Marimar Bhandari [facility] [id number] [facility] 2023-10-05 14:00:00 2023-10-05 16:53:20 Outpatient R MARIMAR BHANDARI [facility] [id number] [facility] Results Test Description Test Time Test Comments Results Result Co mments Source [facility] [id number] 20:00:00* Test Item Value Reference Range Interpretation Comme nts POCT PREG (test code = 1605) Negative On board controls acceptable with C Line (test code = 3574) Yes POCT PREG LOT # (test code = 3575) POCT PREG TEST DATE ( test code = 3576) [facility]
--- NOTE | 2024-05-29 22:33 | RAD REPORT ---
EXAM: Chest Single View HISTORY: pain all over COMPARISON: 05/15/2024 FINDINGS: LUNGS/PLEURA: The lungs are clear. No pleural effusions or pneumothorax. No pulmonary edema. MEDIASTINUM: The mediastinal silhouette is within normal limits. CARDIAC: The cardiac silhouette is within normal limits. UPPER ABDOMEN: No significant abnormality. BONES: No acute abnormality. LINES/TUBES/OTHER: N/A IMPRESSION: No evidence of acute cardiopulmonary disease.
[2024-05-29] MEDS ORDERED: NA CHLORIDE 0.9% 1,000 ML ONE (23:48)
[2024-05-29] MEDS ORDERED: KETOROLAC 30 MG/ML INJ ONE (23:48)
[2024-05-29 23:57] LABS: Absolute Basophils 0.1 K/uL (0-0.5); Absolute Eosinophils 0.1 K/uL (0-0.5); Absolute Lymphocytes (CBC) 2.5 K/uL (0.7-4.9); Absolute Monocytes 1.2 K/uL (0.1-1.3); Absolute Neutrophil 7.3 K/uL (1.8-8.0); Eosinophils % 0.8 % (0-4.4); Hematocrit 38.7 % (36.0-45.0); Hemoglobin 12.9 g/dL (12.0-15.0); Lymphocytes % 22.5 % (15.3-44.8); MCH 30.7 pg (27.0-35.0); MCHC 33.4 g/dL (32.0-36.0); MCV 91.8 fL (80-100); MPV 7.9 fL (7.6-11.3); Monocytes % 10.8 % (3.3-12.3); Neutrophils % 64.9 % (41.7-73.7); Nucleated Red Blood Cells % 0.2 % (0-0); Platelets 345 thou/uL (152-406); RBC Red Blood Cell Count 4.22 M/uL (3.86-4.86); Red Cell Distribution Width 15.5 % (12.1-15.2)
[2024-05-30] LABS: PT Prothrombin Time 9.4 SECONDS (9.4-12.5); Protime INR 0.89
[2024-05-30 00:16] LABS: Monoscreen NEG (NEG)
[2024-05-30 00:43] LABS: ALT/SGPT 246 U/L (13-56); Albumin 2.5 g/dL (3.4-5.0); Albumin/Globulin Ratio 0.7 (1.1-1.8); Alkaline Phosphatase 94 U/L (45-117); Anion Gap 11.7 mEq/L (5.0-15.0); BUN Blood Urea Nitrogen 9 mg/dL (7-18); Bicarbonate 29 mEq/L (21-32); Bilirubin Total 0.4 mg/dL (0.2-1.0); Creatine Phosphokinase 9415 U/L (26-192); Globulin 3.5 g/dL (2.3-3.5); Glomerular Filtration Rate 142 ml/min (=/>90); Glucose Level 103 mg/dL (74-106); NT PRO-BNP 54 pg/mL (<125); Sodium Level 141 mEq/L (136-145); Troponin High Sensitivity 10.1 pg/mL (<58.9)
[2024-05-30 00:47] LABS: AST/SGOT 590 U/L (15-37); Bilirubin Direct < 0.2 mg/dL (0-0.2); Bilirubin Indirect, Calculated 0.2 mg/dL (0.2-0.8); Magnesium 2.1 mg/dL (1.6-2.4); Potassium 3.7 mEq/L (3.5-5.1)
[2024-05-30] MEDS ORDERED: ONDANSETRON 4 MG/2 ML VIAL ONE (01:16)
[2024-05-30] MEDS ORDERED: FAMOTIDINE 20 MG/2 ML VIAL IV ONE (01:17)
[2024-05-30] MEDS ORDERED: NA CHLORIDE 0.9% 1,000 ML ONE (01:17)
[2024-05-30 01:48] LABS: SARS-CoV-2 Antigen CONTROL BLUE LINE VIS/BG OK; SARS-CoV-2 Antigen Rapid Res Negative (Negative)
[2024-05-30 01:54] LABS: Specific Gravity 1.013 (1.005-1.030); Sqamous Epithelial <5 /HPF (None Seen); Urine Bacteria None Seen /HPF (<20); Urine Bilirubin NEGATIVE (Negative); Urine Blood Negative (Negative); Urine Clarity Clear (Clear); Urine Color Light-Yellow (Yellow); Urine Culture Reflex Order NOT NEEDED; Urine Glucose NEGATIVE (Negative); Urine Ketones NEGATIVE (Negative); Urine Micro Reflex YN NO BILL MICROSCOPIC; Urine Nitrite NEGATIVE (Negative); Urine Protein NEGATIVE (Negative); Urine RBC None Seen /HPF (None Seen); Urine Urobilinogen Normal (Normal); Urine WBC <5 /HPF (<5); Urine pH 6.5 (5.0-7.0)
[2024-05-30 01:56] LABS: Specific Gravity 1.013 (1.005-1.030)
[2024-05-30 02:00] LABS: Barbiturates NEGATIVE (NEGATIVE); Benzodiazepines NEGATIVE (NEGATIVE); Cocaine NEGATIVE (NEGATIVE); METHAMPHETAM NEGATIVE (NEGATIVE); Methadone NEGATIVE (NEGATIVE); Opiates NEGATIVE (NEGATIVE); Phencyclidine NEGATIVE (NEGATIVE); THC Cannibis NEGATIVE (NEGATIVE)
--- NOTE | 2024-05-30 02:00 | EDPHYS ---
Physician Documentation [facility] Name: Danielle Pedroza Age: 23 yrs Sex: Female : 2000 Arrival Date: 05/29/2024 Time: 21:13 Bed 23 Private MD: ED Physician Mickey Funk HPI: 05/29 21:45 This 23 yrs old Female presents to ER via Wheelchair with complaints of cp General Weakness, Pain All Over. 21:45 The patient's problem is reported as weakness, that is generalized. Onset: The cp symptoms/episode began/occurred gradually, and became worse today. 21:45 Duration: The episode is continuous. Associated signs and symptoms: Pertinent cp positives: pain all over, cough, chest congestion. Patient's baseline: Neuro: alert and fully oriented, Motor: no deficits, Ambulation: walks without assistance, Speech: normal. Patient reports recent hospitalization for similar symptoms. Historical: - Allergies: 21:40 Ampicillin; me1 - PMHx: 21:40 Hypertensive disorder; me1 - Immunization history:: Adult Immunizations unknown. - Infectious Disease History:: Denies. - Social history:: Smoking status: Patient denies any tobacco usage or history of. ROS: 21:50 Constitutional: Positive for body aches, pain all over, Negative for fever, cp 21:50 Eyes: Negative for injury, pain, redness, and discharge, cp 21:50 ENT: Positive for sore throat, Negative for drainage from ear(s), ear pain, difficulty swallowing, difficulty handling secretions, 21:50 Respiratory: Positive for cough, Negative for shortness of breath, wheezing, 21:50 Abdomen/GI: Negative for abdominal pain, vomiting, diarrhea, constipation, 21:50 Neuro: Positive for weakness, Negative for altered mental status, numbness, syncope, 21:50 All other systems are negative, Exam: 21:55 Constitutional: The patient appears in no acute distress, alert, awake, cp non-diaphoretic, non-toxic, well developed, well nourished, uncomfortable, 21:55 Head/Face: Normocephalic, atraumatic. cp 21:55 Eyes: Periorbital structures: appear normal, Pupils: equal, round, and reactive to light and accomodation, Extraocular movements: intact throughout, Conjunctiva: normal, no exudate, no injection, Sclera: no appreciated abnormality, Lids and lashes: appear normal, bilaterally, 21:55 ENT: External ear(s): are unremarkable, Nose: is normal, Mouth: Lips: moist, Oral mucosa: moist, Posterior pharynx: Airway: no evidence of obstruction, patent, Voice: is normal, 21:55 Neck: ROM/movement: is normal, is supple, without pain, no range of motions limitations, no meningismus, no nuchal rigidity, 21:55 Chest/axilla: Inspection: normal, Palpation: crepitus, is not appreciated, tenderness, is not appreciated, 21:55 Cardiovascular: Rate: tachycardic, Rhythm: regular, Edema: ankle edema, that is mild, JVD: is not appreciated, 21:55 Respiratory: the patient does not display signs of respiratory distress, Respirations: normal, no use of accessory muscles, no retractions, labored breathing, is not present, Breath sounds: are clear throughout, no decreased breath sounds, no stridor, no wheezing, 21:55 Abdomen/GI: Inspection: abdomen appears normal, Palpation: abdomen is soft and non-tender, in all quadrants, 21:55 Skin: cellulitis, is not appreciated, no rash present. 21:55 Neuro: Orientation: to person, place \T\ time. Mentation: is normal, Motor: moves all fours, no focal deficits, Sensation: no obvious gross deficits, 23:42 ECG was reviewed by the Attending Physician. Vital Signs: 21:37 BP 128 / 98; Pulse 107; Resp 17; Temp 98; Pulse Ox 100% ; Weight 56.7 kg; me1 23:30 BP 121 / 84; Pulse 106; Resp 17; Pulse Ox 100% on R/A; ay MDM: 21:42 Medical Screening Exam initiated cp 22:00 Differential diagnosis: metabolic disorder, drug effects, acute ME, dehydration, sepsis. 05/30 02:05 Management of patient was discussed with the following: Hospitalist: DR Arauz will cp admit after discussion. Counseling: I had a detailed discussion with the patient and/or guardian regarding the historical points, exam findings, and any diagnostic results supporting the discharge/admit diagnosis, lab results, radiology results, the need for further work-up and treatment in the hospital. Response to treatment: the patient's symptoms have mildly improved after treatment. 02:40 Data reviewed: vital signs, nurses notes, lab test result(s), EKG, radiologic studies, cp CT scan, plain films, and as a result, I will admit patient. 02:40 I considered the following discharge prescriptions or medication management in the emergency department Medications were administered in the Emergency Department. See MAR. Independent interpretation of the following test(s) in the Emergency Department EKG: See my EKG interpretation above. Care significantly affected by the following chronic conditions: Hypertension. 05/29 21:39 Order name: Basic Metabolic Panel; Complete Time: 00:52 cp 05/30 00:52 Interpretation: Normal except: CRE 0.40. cp 05/29 21:39 Order name: CBC with Diff; Complete Time: 00:52 cp 05/30 00:52 Interpretation: Normal except: WBC 11.30; RDW 15.5. cp 05/29 21:39 Order name: LFT's; Complete Time: 00:52 cp 05/30 00:52 Interpretation: Normal except: AST 590; ALT 246; TP 6.0; ALB 2.5; A/G 0.7. cp 05/29 21:39 Order name: Magnesium; Complete Time: 00:52 cp 05/29 21:39 Order name: NT PRO-BNP; Complete Time: 00:52 cp 05/29 21:39 Order name: PT-INR; Complete Time: 00:52 cp 05/29 21:39 Order name: Troponin HS; Complete Time: 00:52 cp 05/29 21:39 Order name: CK; Complete Time: 00:52 cp 05/30 00:53 Interpretation: Abnormal: CPK 9415. cp 05/29 23:29 Order name: Influenza Screen (a \T\ B); Complete Time: 02:36 cp 05/29 23:29 Order name: SARS RAPID; Complete Time: 02:36 cp 05/29 23:29 Order name: Strep cp 05/29 23:29 Order name: Maries Screen Profile; Complete Time: 00:52 cp 05/29 23:55 Order name: Urinalysis W/Microscopic; Complete Time: 02:36 cp 05/29 23:55 Order name: Test, Urine; Complete Time: 02:36 cp 05/29 23:55 Order name: UDS; Complete Time: 02:36 cp 05/30 01:15 Order name: Blood Culture Adult (2) 05/30 01:15 Order name: Lactate w/ 2H reflex if indic. cp 05/30 01:15 Order name: Ptt, Activated; Complete Time: 02:36 cp 05/30 01:49 Order name: Throat Culture [facility] 05/30 02:38 Order name: Ghost Lactate-NO COLLECT Timer [facility] 05/30 02:50 Order name: Magnesium [facility] 05/30 02:50 Order name: CBC with Automated Diff [facility] 05/30 02:50 Order name: CBC with Automated Diff [facility] 05/30 02:50 Order name: Comprehensive Metabolic Panel [facility] 05/30 02:50 Order name: Comprehensive Metabolic Panel [facility] 05/30 02:50 Order name: Creatine Phosphokinase [facility] 05/30 02:50 Order name: Creatine Phosphokinase [facility] 05/30 02:50 Order name: Creatine Phosphokinase [facility] 05/30 02:50 Order name: Creatine Phosphokinase [facility] 05/30 06:07 Order name: Lactate Sepsis 2 HR Follow-up [facility] 05/30 13:38 Order name: Lactate w/ 2H reflex if indic. [facility] 05/29 21:39 Order name: XRAY Chest (1 view); Complete Time: 23:30 cp 05/29 23:30 Interpretation: Report review. 05/30 02:50 Order name: Barium Swallow Modified [facility] 05/29 21:39 Order name: EKG; Complete Time: 21:40 05/30 02:50 Order name: CONS Physician Consult [facility] 05/29 21:39 Order name: Cardiac monitoring; Complete Time: 23:45 cp 05/29 21:39 Order name: EKG - Nurse/Tech; Complete Time: 23:45 cp 05/29 21:39 Order name: IV Saline Lock; Complete Time: 23:45 cp 05/29 21:39 Order name: Labs collected and sent; Complete Time: 23:46 cp 05/29 21:39 Order name: O2 Per Protocol; Complete Time: 23:45 cp 05/29 21:39 Order name: O2 Sat Monitoring; Complete Time: 23:45 cp 05/30 01:15 Order name: Accucheck; Complete Time: 07:15 cp 05/30 01:15 Order name: IV Saline Lock - Large Bore; Complete Time: 07:15 cp 05/30 01:15 Order name: Vital Signs; Complete Time: 07:15 cp EC/26 23:42 Rate is 104 beats/min. Rhythm is regular. UT interval is normal. QRS interval is cp normal. QT interval is normal. T waves are Inverted in leads III, aVR. Interpreted by me. Reviewed by me. Administered Medications: 05/30 00:03 Drug: Ketorolac IVP 15 mg IVP once Route: IVP; Site: right antecubital; ay 03:05 Follow up: Response: No adverse reaction ay 00:03 Drug: NS 0.9% IV 1000 ml IV at 1000 ml once; to be given as a bolus over 60 minutes ay Route: IV; Rate: 1000 ml; Site: right antecubital; 03:05 Follow up: Response: No adverse reaction; IV Status: Completed infusion; IV Intake: ay 1000ml 02:50 Drug: NS 0.9% IV 1000 ml IV at 1 bolus Per protocol; to be given as a bolus over 60 ay minutes Route: IV; Rate: 1 bolus; Site: right antecubital; 03:06 Follow up: Response: No adverse reaction; IV Status: Completed infusion; IV Intake: ay 1000ml 02:51 Drug: Ondansetron IVP 4 mg IVP once; over 2 minutes Route: IVP; Site: right antecubital;ay 03:05 Follow up: Response: No adverse reaction ay 02:51 Drug: Famotidine IVP 20 mg IVP once; dilute with 10 mL 0.9% NaCl; give over 2 minutes ay Route: IVP; Site: right antecubital; 03:05 Follow up: Response: No adverse reaction ay 03:04 Drug: Rocephin IV 1 grams IV at calculated rate once; Given slow IV push per pharmacy ay instructions Route: IV; Rate: calculated rate; Site: right antecubital; 03:30 Follow up: Response: No adverse reaction; IV Status: Completed infusion jl7 Disposition: 06:30 I was immediately available on-site in the Emergency Department for consultation in the ms3 care of the patient. 05/31 02:10 Chart complete. cp Disposition Summary: 05/30/24 02:00 Hospitalization Ordered Notes: Hospitalization Status: Inpatient Admission cp Provider: Zo Arauz cp Condition: Fair cp Problem: new cp Symptoms: have improved cp Bed/Room Type: Standard cp Location: Telemetry/MedSurg (Inpatient)(05/30/24 14:03) bd Room Assignment: 208(05/30/24 14:03) bd Diagnosis - Rhabdomyolysis cp - Abnormal results of liver function studies cp - Weakness cp Forms: - Medication Reconciliation Form cp - SBAR form cp - Leadership Thank You Letter cp Signatures: Dispatcher [employer] EDMS Sue Chery Corey, PA PA cp Able, Lacie, RN RN lg3 Mickey Funk, DO ms3 Kaylynn Greenwood RN RN me1 Mavis Moore RN RN Jasson Schultz RN jl7 Corrections: (The following items were deleted from the chart) 05/29 23:30 23:30 Influenza Screen (A \T\ B)+BA.LAB.BRZ ordered. EDMS EDMS 23:30 23:30 SARS-COV-2 Antigen Rapid+I.LAB.BRZ ordered. EDMS EDMS 23:30 23:30 Group A Streptococcus Rapid Sc+BA.LAB.BRZ ordered. EDMS EDMS 23:30 23:30 MONO SCREEN PROFILE+I.LAB.BRZ ordered. EDMS EDMS 23:55 23:55 Urinalysis W/Microscopic+U.LAB.BRZ ordered. EDMS EDMS 23:55 23:55 Test, Urine+UC.LAB.BRZ ordered. EDMS EDMS 23:55 23:55 URINE DRUG SCREEN+UC.LAB.BRZ ordered. EDMS EDMS 05/30 01:16 01:16 BLOOD CULTURE*+BA.LAB.BRZ ordered. EDMS EDMS 01:16 01:16 LACTATE+C.LAB.BRZ ordered. EDMS EDMS 01:16 01:16 PTT, ACTIVATED+COAG.LAB.BRZ ordered. EDMS EDMS 02:21 02:00 Telemetry/MedSurg (Inpatient) cp lg3 02:21 02:00 cp lg3 14:03 02:21 [facility] ER HOLD lg3 bd 14:03 02:21 ERHOLD- lg3 bd
--- NOTE | 2024-05-30 02:00 | ER ---
Nurse's Notes [facility] Name: Danielle Pedroza Age: 23 yrs Sex: Female : 2000 Arrival Date: 05/29/2024 Time: 21:13 Bed 23 Private MD: Diagnosis: Rhabdomyolysis;Abnormal results of liver function studies;Weakness Presentation: 05/29 21:37 Chief complaint: Patient states: she was seen here on Thursday and was given me1 medication. States she feels weaker now, like she is losing mobility in muscle. States she is unable to walk to bathroom alone. c/o sore throat. States she has body aches. States she feels like she has phlegm in her chest. Denies cough. Patient is currently . Coronavirus screen: Vaccine status: Patient reports being unvaccinated. Ebola Screen: No symptoms or risks identified at this time. Initial Sepsis Screen: Does the patient meet any 2 criteria? HR > 90 bpm. Risk Assessment: Do you want to hurt yourself or someone else? Patient reports no desire to harm self or others. Onset of symptoms is unknown. 21:37 Method Of Arrival: Wheelchair ia1 21:37 Acuity: MAYRA 3 me1 05/30 07:15 Initial Sepsis Screen: Does the patient have a suspected source of infection? No. jl7 Patient's initial sepsis screen is negative. Historical: - Allergies: 05/29 21:40 Ampicillin; me1 - PMHx: 21:40 Hypertensive disorder; me1 - Immunization history:: Adult Immunizations unknown. - Infectious Disease History:: Denies. - Social history:: Smoking status: Patient denies any tobacco usage or history of. Screenin:00 [facility] ED Fall Risk Assessment (Adult) History of falling in the last 3 months, ay including since admission No falls in past 3 months (0 pts) Confusion or Disorientation No (0 pts) Intoxicated or Sedated No (0 pts) Impaired Gait No (0 pts) Mobility Assist Device Used No (0 pt) Altered Elimination No (0 pt) Score/Fall Risk Level 0 - 2 = Low Risk Oriented to surroundings, Maintained a safe environment, Educated pt \T\ family on fall prevention, incl call for assistance when getting out of bed. Abuse screen: Denies threats or abuse. Denies injuries from another. Nutritional screening: No deficits noted. Tuberculosis screening: No symptoms or risk factors identified. Assessment: 22:00 Pain: Complains of pain in Throat, bilateral arms Pain currently is 8 out of 10 on a ay pain scale. Neuro: Level of Consciousness is awake, alert, obeys commands, Oriented to person, place, time, situation, Process Control Operator are equal bilaterally Speech is normal. Cardiovascular: Capillary refill < 3 seconds Rhythm is sinus tachycardia. Respiratory: Airway is patent Respiratory effort is even, unlabored, Respiratory pattern is regular, symmetrical. GI: Abdomen is flat, Abd is soft and non tender X 4 quads. : No signs and/or symptoms were reported regarding the genitourinary system. EENT: Reports pain when swallowing. Derm: No signs and/or symptoms reported regarding the dermatologic system. Musculoskeletal: No signs and/or symptoms reported regarding the musculoskeletal system. 05/30 06:10 Reassessment: critical lab result lactate 3.[address] Guerra. ay Vital Signs: 05/29 21:37 BP 128 / 98; Pulse 107; Resp 17; Temp 98; Pulse Ox 100% ; Weight 56.7 kg; me1 23:30 BP 121 / 84; Pulse 106; Resp 17; Pulse Ox 100% on R/A; ay ED Course: 21:18 Patient arrived in ED. im 21:19 Bob Perez PA is PHCP. cp 21:19 Mickey Funk DO is Attending Physician. cp 21:40 Triage completed. me1 21:41 Arm band placed on Patient placed in waiting room. me1 22:00 Patient has correct armband on for positive identification. Bed in low position. Call ay light in reach. Side rails up X2. Adult w/ patient. Provided Education on: plan of care. 22:00 Inserted saline lock: 20 gauge in right antecubital area, using aseptic technique. ay Oxygen administration via nasal cannula \T\ 2L/min. 22:30 XRAY Chest (1 view) In Process Unspecified. EDMS 23:15 Mavis Moore, RN is Primary Nurse. ay 23:46 Basic Metabolic Panel Sent. ay 23:46 CBC with Diff Sent. ay 23:46 LFT's Sent. ay 23:46 PT-INR Sent. ay 23:46 NT PRO-BNP Sent. ay 23:46 Magnesium Sent. ay 05/30 00:19 Influenza Screen (a \T\ B) Sent. ay 00:19 CK Sent. ay 00:19 Strep Sent. ay 01:59 Zo Arauz MD is Hospitalizing Provider. cp 02:08 Inserted saline lock: 22 gauge in left antecubital area, using aseptic technique. Blood oe collected. Flushed with 10 mL NS. 02:09 Blood Culture Adult (2) Sent. oe 02:09 Lactate w/ 2H reflex if indic. Sent. oe 02:09 Ptt, Activated Sent. oe 07:16 No provider procedures requiring assistance completed. Patient admitted, IV remains in jl7 place. intact, No redness/swelling at site. Administered Medications: 00:03 Drug: Ketorolac IVP 15 mg IVP once Route: IVP; Site: right antecubital; ay 03:05 Follow up: Response: No adverse reaction ay 00:03 Drug: NS 0.9% IV 1000 ml IV at 1000 ml once; to be given as a bolus over 60 minutes ay Route: IV; Rate: 1000 ml; Site: right antecubital; 03:05 Follow up: Response: No adverse reaction; IV Status: Completed infusion; IV Intake: ay 1000ml 02:50 Drug: NS 0.9% IV 1000 ml IV at 1 bolus Per protocol; to be given as a bolus over 60 ay minutes Route: IV; Rate: 1 bolus; Site: right antecubital; 03:06 Follow up: Response: No adverse reaction; IV Status: Completed infusion; IV Intake: ay 1000ml 02:51 Drug: Ondansetron IVP 4 mg IVP once; over 2 minutes Route: IVP; Site: right antecubital;ay 03:05 Follow up: Response: No adverse reaction ay 02:51 Drug: Famotidine IVP 20 mg IVP once; dilute with 10 mL 0.9% NaCl; give over 2 minutes ay Route: IVP; Site: right antecubital; 03:05 Follow up: Response: No adverse reaction ay 03:04 Drug: Rocephin IV 1 grams IV at calculated rate once; Given slow IV push per pharmacy ay instructions Route: IV; Rate: calculated rate; Site: right antecubital; 03:30 Follow up: Response: No adverse reaction; IV Status: Completed infusion jl7 Medication: 05/29 22:00 VIS not applicable for this client. ay Intake: 05/30 03:05 IV: 1000ml; Total: 1000ml. ay 03:06 IV: 1000ml; Total: 2000ml. ay Outcome: 02:00 Decision to Hospitalize by Provider. cp 07:16 Admitted to ER Hold. Please see [facility] for further documentation. jl7 07:16 Condition: stable 07:16 Instructed on the need for admit, Demonstrated understanding of instructions, 15:05 Patient left the ED. ss Signatures: Dispatcher [employer] EDMily Sheth, RN RN ss Bob Perez PA PA Calvin Powers Jahala RN RN jl7 Lizzie Zhao Michelle RN RN me1 Mavis Moore RN RN ay Corrections: (The following items were deleted from the chart) 05/29 21:40 21:24 Chief complaint: me1 me1 21:41 21:37 Chief complaint: Patient states: she was seen here on Thursday and was given me1 medication. States she feels weaker now, like she is losing mobility in muscle. States she is unable to walk to bathroom alone. c/o sore throat. States she has body aches. States she feels like she has phlegm in her chest. Denies cough. me1
[2024-05-30] MEDS ORDERED: ONDANSETRON 4 MG/2 ML VIAL IV PRN (02:44)
--- NOTE | 2024-05-30 02:44 | P.HP ---
Certification for Inpatient Patient admitted to: Inpatient With expected LOS: >2 Midnights Patient will require the following post-hospital care: None Practitioner: I am a practitioner with admitting privileges, knowledge of patient current condition, hospital course, and medical plan of care. Services: Services provided to patient in accordance with Admission requirements found in Title 42 Section 412.3 of the Code of Federal Regulations Patient History Date of Service: 05/30/24 Reason for admission: Muscle aches History of Present Illness: 23-year-old female with no past medical history status post recent hospitalization for acute rhabdomyolysis in setting of upper respiratory tract infection, started on empirical steroids as well as IV fluid, CPK trended from 11,000-8000 at discharge4 days ago. Patient states on getting home she continued to have muscle aches and generalized body pain. She still has weakness prostate weakness was not worsening but continues persistent soreness of the muscles. She also have mild difficulty with swallowing. She presented to the hospital again because of persistent symptoms. She denies any family history of of muscle disorder. She denies any statin use. On arrival today her CPK is at 9515, mild elevated LFT with AST of 580 and ALT of 480about discharge levels, urinalysis unremarkable. Lactic acid mildly elevated at 2.5 previous workup for SARAHY ANCA atherosclerotic [address] of the abdomen and chest were also negative. Patient has been admitted for persistent rhabdo Allergies ampicillin Allergy (Verified 05/15/24 20:31) Itching/Hives/Rash Home Medications: Metoprolol Tartrate [Lopressor*] 25 mg PO BID 6AM 6PM #60 tab 05/25/24 predniSONE [Prednisone*] 60 mg PO DAILY #9 tab 05/25/24 - Past Medical/Surgical History Diabetic: No -: Vaginal Delivery - Family History Mother -: Cancer Notes: female cancer - Social History Smoking Status: Never smoker Smoking therapy provided: No Patient receptive to therapy: No Alcohol use: No CD- Drugs: No Caffeine use: Yes Place of Residence: Home Review of Systems General: Malaise Neurological: Weakness Physical Examination - Physical Exam General: Alert, In no apparent distress, Oriented x3, Oriented x2, Cooperative HEENT: Atraumatic, Normocephalic, PERRLA Neck: Supple, 2+ carotid pulse no bruit, JVD not distended Respiratory: Clear to auscultation bilaterally, Normal air movement Cardiovascular: Normal pulses, Regular rate/rhythm, Normal S1 S2 Gastrointestinal: Normal bowel sounds, Soft and benign, Non-distended Musculoskeletal: No clubbing, No swelling Integumentary: No breakdown, No significant lesion, No tenderness/swelling Neurological: Normal speech, Normal strength at 5/5 x4 extr, Normal tone, Sensation intact - Studies Laboratory Data (last 24 hrs) 05/30/24 05/29/24 05/29/24 01:50 23:25 23:25 WBC 11.30 H Hgb 12.9 Hct 38.7 Plt Count 345 PT 9.4 INR 0.89 APTT 25.7 Sodium Potassium BUN Creatinine Glucose Magnesium Total Bilirubin AST ALT Alkaline Phosphatase 05/29/24 23:25 WBC Hgb Hct Plt Count PT INR APTT Sodium 141 Potassium 3.7 BUN 9 Creatinine 0.40 L Glucose 103 Magnesium 2.1 Total Bilirubin 0.4 AST 590 H ALT 246 H Alkaline Phosphatase 94 Microbiology Data (last 24 hrs): 05/30/24 00:05 Throat Group A Streptococcus Rapid Screen - Final 05/30/24 00:05 Nasopharnyx Influenza Type A Antigen Screen - Final 05/30/24 00:05 Nasopharnyx Influenza Type B Antigen Screen - Final Assessment and Plan - Plan Impression and plan Persistent rhabdomyolysis Elevated LFTslikely due to rhabdo Lactic acidemiamild Reported odynophagia Plan Start gentle IV fluid with LR and Lasix Resume steroids Follow daily CK level Unclear etiology of rhabdo but will follow CPK trend until less than 2000 before discharge Monitor potassium and replete Follow magnesium level Full code Dispo possible hospital stay for more than 48 hours - Advance Directives Does patient have a Living Will: No Does patient have a Durable POA for Healthcare: No Physician Review: Patient Assessed, Agree with Above Assessment and Plan Time Spent Managing Pts Care (In Minutes): 70
[2024-05-30] MEDS ORDERED: CEFTRIAXONE 1000 MG/VIAL ONE (02:59)
[2024-05-30 07:23] VITALS: BMI 24.4
[2024-05-30] MEDS: Ringers Lactate 1,000 ML IV SCH (08:00)
[2024-05-30] MEDS ORDERED: ACETAMINOPHEN 500 MG TAB ONE (08:42)
[2024-05-30] MEDS ORDERED: Ringers Lactate 1,000 ML IV ONE ×2 (08:42→13:21)
[2024-05-30] MEDS ORDERED: predniSONE 20 MG TAB ONE (08:42)
[2024-05-30] MEDS: predniSONE 20 MG TAB PO SCH (09:00)
[2024-05-30] MEDS: ACETAMINOPHEN 500 MG TAB PO PRN (09:18)
[2024-05-30] MEDS ORDERED: FUROSEMIDE 20 MG/ 2ML VIAL ONE (10:32)
[2024-05-30] MEDS: FUROSEMIDE 20 MG/ 2ML VIAL IV ONE (10:38)
[2024-05-30] MEDS: METHYLPRED NA SUC 1,000 MG in NA CHLORIDE 0.9% 100 ML IV ONE (12:30)
[2024-05-30] MEDS ORDERED: FLU (Fluarix Triv) TS24-25(6MOS UP)/PF 45 MCG/0.5 ML Syringe IM ONE (13:15)
[2024-05-30 17:06] LABS: HCG, Quantitative < 1 mIU/mL (1-3); Phosphorus 4.7 mg/dL (2.5-4.9)
--- NOTE | 2024-05-30 18:42 | P.PN ---
Date of Service: 05/30/24 Patient seen and examined. She is complaining of generalized bodily pains and fatigue. She is also complaining of fatigue with chewing to the point she develops trouble swallowing. No fever. She has been experiencing tachycardia. Elevated CK and lactic acidosis. Diagnosis: Viral myositis versus inflammatory myositis. Aldolase level elevated. Plan Aggressive IV hydration. Monitor CK level Serial lactic Nephrology consulted Surgery consulted for muscle biopsy. Patient given high-dose steroid-monitor response Resume metoprolol for tachycardia. Patient met criteria for SIRS. Will place on empiric IV Rocephin and vancomycin.
[2024-05-30] MEDS: METOPROLOL TAR 25 MG TAB PO SCH (19:18)
[2024-05-30] MEDS: Levofloxacin 250mg IV 750 MG/150 ML BAG IV SCH (19:20)
[2024-05-30 19:35] LABS: Rheumatoid Factor NEG (NEG)
[2024-05-30] MEDS: VANCOMYCIN 1 GM in NA CHLORIDE 0.9% 250 ML IVPB SCH (21:19)
[2024-05-30] MEDS: DIPHENHYDRAMINE 50 MG/ML VIAL IV ONE (23:48)
[2024-05-30] MEDS: METHYLPREDNISOLONE 40 MG INJ IV ONE (23:49)
--- NOTE | 2024-05-31 03:28 | PN ---
Date of Progress Note: 05/30/2024 Chief Complaint: Elevated CK level, myalgia. History Of Present Illness: The patient is a 23-year-old woman who was recently treated for rhabdomyolysis and was discharged home, although she came back to the emergency room because of generalized weakness, muscle aches, and soreness. The patient is 23-year-old female with no past medical history but status post recent hospitalization for acute rhabdomyolysis in setting of upper respiratory tract infection. She was started on empirical steroids as well as IV fluids. CPK was trending down from 18432 to 8000 and the patient was discharged home. After she was discharged home, she developed progressively worse muscle aches and generalized body pain and came to the hospital. She also was complaining of difficulty with swallowing. CPK level on arrival was 9515. Liver function tests were mildly elevated. AST was 580, ALT 480. Urinalysis was unremarkable. Lactic acid mildly elevated up to 2.5. Previous workup showed negative SARAHY, previous CT scan of the abdomen and chest were negative. The patient is admitted with rhabdomyolysis. Renal function remains within normal limits. Home Medications: Metoprolol 25 mg p.o. b.i.d., prednisone 60 mg daily. The patient denies diabetes. Family History: Mother had cancer. Social History: Denies tobacco, denies alcohol, denies substance use, denies drugs. Review of Systems: Constitutional: Denies fever, chills. Eyes: Denies vision changes. Ears, Nose, Mouth, and Throat: Denies sore throat, earaches. Respiratory: Denies PND, orthopnea. Cardiovascular: Denies syncope, palpitations. : Denies dysuria, hematuria Musculoskeletal: generalized weakness and muscle aches. Physical Examination: General: Alert, oriented, not in acute distress. HEENT: Atraumatic, normocephalic. Neck: Supple. No JVD. No bruits. Respiratory: Clear to auscultation bilaterally. Heart: S1, S2. No pericardial friction rub. Abdomen: Soft, benign, nontender. Extremities: No clubbing, no swelling, no cyanosis. Laboratory Data: WBC 11.3, hemoglobin 12.0, PT 9.4, PTT 25.7, INR 0.89. Sodium 141, potassium 3.7, BUN 9, creatinine 0.4, glucose 103, magnesium 2.1, AST 590, ALT 246, AP 94. Impression And Plan: 1. Persistent rhabdomyolysis, elevated CK and associated elevation of AST and ALT. Recommend to check hepatitis panel, continue IV hydration with lactated Ringer and resume steroids and check CK level daily. Check myoglobin level. 2. Monitor phosphorus level and magnesium level. Check intact PTH, 25-hydroxy vitamin D level. The patient is to have a biopsy of the muscle for further evaluation and surgical consultation is requested. 3. Monitor blood pressure closely. Check blood culture and urine culture to rule out bacteremia, to rule out urinary tract infection. JONY/MODL Voice ID: [id number] Report ID: [id number] MARÍA
[2024-05-31 06:26] LABS: Absolute Lymphocytes (CBC) 0.9 K/uL (0.7-4.9); Absolute Monocytes 0.5 K/uL (0.1-1.3); Absolute Neutrophil 8.1 K/uL (1.8-8.0); Basophils % 0.1 % (0-1.3); Hematocrit 30.8 % (36.0-45.0); Hemoglobin 10.6 g/dL (12.0-15.0); Lymphocytes % 9.9 % (15.3-44.8); MCH 30.7 pg (27.0-35.0); MCHC 34.3 g/dL (32.0-36.0); MCV 89.5 fL (80-100); Monocytes % 5.2 % (3.3-12.3); Neutrophils % 84.8 % (41.7-73.7); Platelets 285 thou/uL (152-406); RBC Red Blood Cell Count 3.44 M/uL (3.86-4.86)
[2024-05-31 06:56] LABS: Albumin 2.1 g/dL (3.4-5.0); Albumin/Globulin Ratio 0.7 (1.1-1.8); Bilirubin Total 0.7 mg/dL (0.2-1.0); Globulin 3.2 g/dL (2.3-3.5); Protein, Total 5.3 g/dL (6.4-8.2)
--- NOTE | 2024-05-31 07:24 | P.PN ---
Date of Service: 05/31/24 Subjective: feeling better slightly felt ok at home, but worsened after finished steroids ROS: 10 point ROS as noted above, otherwise negative Physical Exam: GEN: Alert, NAD, appears fatigued CV: sinus tachycardia, mild edema Pulm: Nonlabored respirations on room air, clear bilaterally Integumentary: No rashes Neuro: Normal speech, normal affect Problem List: Rhabdomyolysis, Suspect Viral myositis versus inflammatory myositis Lactic acidosis Elevated LFTs Sinus Tachycardia Dysphagia Rhabdomyolysis, Suspect Viral myositis versus inflammatory myositis Lactic acidosis Elevated LFTs patient recently admitted for acute rhabdo in setting of viral respiratory infection ~1 week ago.Patient returned home and continued to have muscle aches, generalized weakness, pains. [place] like she started getting weaker, and was less mobile so she came back. +Now reporting difficulty swallowing. Aldolase from prior hospitalization elevated 54.8 (05/21) Nephrology consulted CPK improving; 9415 -> 4599 LFTs improved compared to last admission. Elevated LFTs likely related to rhabdomyolysis trend lactate until improving renal u/s unremarkable. continue IV fluids continue oral prednisone 60 mg daily continue empiric levaquin / vanc (05/30-) to cover possible infection Follow blood cultures Dr. Carmona, general surgeon consulted for muscle biopsy Sinus Tachycardia resume home metoprolol Monitor on telemetry Dysphagia Patient now reporting some mild dysphagia - new this hospitalization NPO for now Barium swallow study ordered Code: Full Dispo: Home CPK improves, nephro recs Time Spent Managing Pts Care (In Minutes): 55
--- NOTE | 2024-05-31 07:51 | RAD REPORT ---
EXAMINATION: US RENAL CLINICAL INDICATION: Abdominal pain. Hypokalemia TECHNIQUE: Real-time ultrasonography of the kidneys performed. COMPARISON: May 05, 2024 CT. FINDINGS: Right kidney measures 10 cm with a normal echotexture. Left kidney measures 10 cm with normal echotexture. No hydronephrosis No gross abnormality bladder. IMPRESSION: No significant abnormalities displayed
[2024-05-31] MEDS: VANCOMYCIN 1.25 GM in NA CHLORIDE 0.9% 250 ML IVPB SCH (08:13)
[2024-05-31 08:17] LABS: C-Reactive Protein 8.56 mg/L (<3.00)
[2024-05-31] MEDS ORDERED: ONDANSETRON 4 MG/2 ML VIAL ONE (10:32)
[2024-05-31] MEDS ORDERED: propofoL 200 MG/20 ML VIAL IV ONE ×2 (10:32→11:37)
[2024-05-31] MEDS ORDERED: FENTANYL CITR 100 MCG/2 ML ONE (10:32)
[2024-05-31] MEDS ORDERED: MIDAZOLAM HCL 2 MG/2 ML INJ ONE (10:32)
[2024-05-31] MEDS ORDERED: LIDOCAINE 1% MPF 5 ML VIAL ONE (10:35)
[2024-05-31] MEDS ORDERED: dexAMETHasone 4 MG/ML VIAL ONE (12:19)
[2024-05-31] MEDS: LIDOCAINE HCL/EPINEPHRINE 20 ML MDV ONE (12:22)
--- NOTE | 2024-05-31 12:49 | P.OP ---
Preoperative diagnosis: Rhabdomyolysis Postoperative diagnosis: Rhabdomyolysis Primary procedure: Open RIGHT Thigh Muscle Biopsy Anesthesia: GETA + Local Estimated blood loss: <2cc Specimen: Muscle of Qudracept ~ 3.2cm x 1.75 cm x 1.2cm Findings: significant edema Complications: None Transferred to: Recovery Room Condition: Good
[2024-05-31] MEDS: Ringers Lactate 1,000 ML IV SCH (13:36)
--- NOTE | 2024-05-31 18:20 | PN ---
Date of Progress Note: 05/31/2024 Subjective: The patient was admitted to the hospital with rhabdo again with worsening clinical condition. The patient was started on Solu-Medrol. Serology was sent again. Physical Examination: Vital Signs: Blood pressure 125/82, pulse of 86, afebrile. Chest: Clear to auscultation. Heart: S1, S2, regular. Abdomen: Soft, nontender. Extremity: No edema. Neurologic: Alert. No focality. Laboratory Data: Hemoglobin 10.6, WBC 9.6. Sodium 137, potassium 4, bicarb 29, BUN 12, creatinine 0.2. Lactic acid 4.2, calcium 8.9, AST 363. CK down to 4500. Albumin 2.1. Cortisol 5.1. Urine drug screen negative. Serology negative. Current Medications: The patient on include. 1. Levaquin. 2. Metoprolol. 3. Patient received Solu-Medrol. 4. LR 200. 5. Prednisone. Assessment And Plan: 1. Rhabdomyolysis. We will follow up serology and we will monitor. I am going to go ahead and decrease IV fluid to 100 per hour. I agree with a dose of Lasix. Continue prednisone as current dose. We will follow up muscle biopsy. 2. Hyponatremia, depletional, recovered. Decrease IV fluid. 3. Edema secondary to hydration, decrease IV fluid. Agree with Lasix. Time spent examining the patient [id number] reviewing data lab and an audiology placing order discussing the case with the patient discussing the case with the steam drier tender including hospitalist and nursing staff more than 55-minute AMEENA Voice ID: [id number] Report ID: [id number] MARÍA
--- NOTE | 2024-06-01 01:01 | OP ---
Date of Procedure: 05/31/2024 Surgeon: Sharan Carmona MD, Preoperative Diagnosis: Rhabdomyolysis. Postoperative Diagnosis: Rhabdomyolysis. Procedure: Open right muscle thigh biopsy. Anesthesia: General endotracheal plus local 1% lidocaine. Estimated Blood Loss: 50 cc. Specimen: The right quadriceps approximately 3.2 cm x 1.75 cm x 1.2 cm. Findings: Significant edema in the subcutaneous tissues and into the muscular compartments. Complications: None. Disposition: The patient is transferred to recovery room in good condition. Procedure In Detail: After informed consent was obtained, patient was brought to the operating room, prepped and draped in the usual sterile fashion. After adequate anesthesia was achieved, I made a l inear incision over the lateral aspect of the right thigh over the quadriceps muscle in the midportio n of the thigh. Dissection continued down through adipose tissue to expose the muscular fascial comp artment. At this point, the lateral compartment was opened using electrocautery down to expose the m uscle of the quadriceps at this point. I then sized appropriately and used tenotomy scissors to ulti mately remove approximately 3.2 cm x 1.75 cm x 1.2 cm segment of tissue. I then sent this off for pa thologic examination. I inspected the area, it was irrigated copiously. Minimal hemostatic measures required with minimal electrocautery in the area to the muscular plane. The area was irrigated once again. No hemostat was required. I partially reapproximated the muscle fascia back with interrupte d 3-0 Vicryl sutures allowing for an open central portion to prevent intracompartment hypertension in this area. I then irrigated the area once again and closed the deep dermal plane using interrupted 3-0 Vicryl suture and skin was closed with a 4-0 Monocryl in a running fashion. Dermabond was placed over top. The patient tolerated the procedure without incident or complication and transferred to P ACU in good condition. All counts were correct at the end of the case. TK/MODL Voice ID: [id number] Report ID: [id number]
[2024-06-01 04:45] LABS: Hematocrit 29.8 % (36.0-45.0); Hemoglobin 9.9 g/dL (12.0-15.0); MCH 30.3 pg (27.0-35.0); MCHC 33.2 g/dL (32.0-36.0); MCV 91.2 fL (80-100); MPV 7.4 fL (7.6-11.3); Platelets 295 thou/uL (152-406); RBC Red Blood Cell Count 3.26 M/uL (3.86-4.86)
[2024-06-01 05:19] LABS: ALT/SGPT 138 U/L (13-56); AST/SGOT 267 U/L (15-37); Albumin 1.9 g/dL (3.4-5.0); Albumin/Globulin Ratio 0.7 (1.1-1.8); Alkaline Phosphatase 56 U/L (45-117); Anion Gap 9.6 mEq/L (5.0-15.0); BUN Blood Urea Nitrogen 14 mg/dL (7-18); Bicarbonate 26 mEq/L (21-32); Bilirubin Total 0.4 mg/dL (0.2-1.0); Creatine Phosphokinase 3084 U/L (26-192); Globulin 2.8 g/dL (2.3-3.5); Glomerular Filtration Rate 145 ml/min (=/>90); Glucose Level 106 mg/dL (74-106); Potassium 3.6 mEq/L (3.5-5.1); Protein, Total 4.7 g/dL (6.4-8.2); Sodium Level 139 mEq/L (136-145)
[2024-06-01 05:21] LABS: C-Reactive Protein < 2.90 mg/L (<3.00)
[2024-06-01] MEDS: MORPHINE 2 MG/ML SYR IV PRN (08:26)
--- NOTE | 2024-06-01 10:50 | P.PN ---
Date of Service: 06/01/24 Subjective: feeling better today tolerated biopsy without issues no events overnight feels very swollen, legs heavy pain improved feels throat is swollen - not closed/obstructed, but feels affected by her swollen state, and saliva feels thicker /dry ROS: 10 point ROS as noted above, otherwise negative Physical Exam: GEN: Alert, NAD, appears fatigued CV: sinus tachycardia, edema throughout, but mostly in lower extremities Pulm: Nonlabored respirations on room air, clear bilaterally Integumentary: No rashes Neuro: Normal speech, normal affect Problem List: Rhabdomyolysis, Suspect Viral myositis versus inflammatory myositis Lactic acidosis, resolved Elevated LFTs Sinus Tachycardia Dysphagia Rhabdomyolysis, Suspect Viral myositis versus inflammatory myositis Lactic acidosis, resolved Elevated LFTs patient recently admitted for acute rhabdo in setting of viral respiratory infection ~1 week ago.Patient returned home and continued to have muscle aches, generalized weakness, pains. [place] like she started getting weaker, and was less mobile so she came back. +Now reporting difficulty swallowing. Started to feel worse at home ~1 day after finishing steroids Aldolase from prior hospitalization elevated 54.8 (05/21) Nephrology consulted CPK improving; 4599 -> 3084 LFTs improving. Elevated LFTs likely related to rhabdomyolysis renal u/s unremarkable. dc IVF 06/01; give 20mg IV lasix x1 06/01 continue oral prednisone 60 mg daily Levaquin/Vanc dc'd (06/01) no signs of infection; Blood cx - NGTD s/p muscle biopsy with Dr. Carmona (05/31); pending results Sinus Tachycardia resume home metoprolol Monitor on telemetry Dysphagia Patient now reporting some mild dysphagia - new this hospitalization Speech recommending barium swallow study to further eval Barium swallow study ordered for today tolerating diet Code: Full Dispo: Home, ~2-3 days CPK improves, nephro recs Time Spent Managing Pts Care (In Minutes): 55
--- NOTE | 2024-06-01 12:37 | EKG ---
Test Date: 2024-05-29 Test Time: 23:35:26 Outpatient Services Director: PIPPA MEASUREMENT RESULTS: Intervals: Rate: 104 SC: 140 QRSD: 76 QT: 318 QTc: 418 [place]: P: 50 SC: 140 QRS: 48 T: 32 INTERPRETIVE STATEMENTS: Sinus tachycardia Otherwise normal ECG Compared to ECG 05/15/2024 16:54:41 No significant changes Electronically Signed On 06-01-24 12:32:58 COAL CAGER by Andrew Hoffman
--- NOTE | 2024-06-01 14:45 | RAD REPORT ---
Modified barium swallow exam with speech pathology service HISTORY: [facility] MA[facility] Dysphagia Fluoroscopy Time: 1:55 minutes IMPRESSION: Please see the speech pathology service report for details. Barium contrast of multiple consistencies was provided the patient orally by the speech pathology dep artment. Fluoroscopic observation was performed during swallowing. The radiologist was not present for the examination. Provided images demonstrate no evidence for corey aspiration or deep laryngeal p enetration. Vallecular premature spillage and significant vallecular and piriform sinus residues noted. Please refer to speech pathologist note for additional details.
[2024-06-01] MEDS: POTASSIUM CL 40 MEQ in NA CHLORIDE 0.9% 500 ML IV SCH (15:25)
[2024-06-01] MEDS ORDERED: VANCOMYCIN 1 GM in NA CHLORIDE 0.9% 250 ML IVPB SCH (16:00)
[2024-06-01] MEDS: FUROSEMIDE 20 MG/ 2ML VIAL IV ONE (16:45)
--- NOTE | 2024-06-01 17:38 | PN ---
Date of Progress Note: 06/01/2024 Subjective: The patient was admitted to the hospital with rhabdomyolysis. The patient underwent muscle biopsy yesterday. The patient is feeling better. Physical Examination: Vital Signs: Blood pressure 104/71, pulse of 93. Chest: Clear to auscultation. Heart: S1, S2 regular. Abdomen: Soft, nontender. Extremities: Trace edema. Neurologic: Alert. No focality. Muscle strength 4/5. Laboratory Data: Hemoglobin 9.9, sodium 139, potassium 3.6, bicarb 26, BUN 14, creatinine 0.3, calcium 7.8. CK down to 3000. Albumin 1.9, corrected calcium is 9.4. Current Medications: The patient is on include 1. Metoprolol. 2. LR at 100. 3. Prednisone 60. Assessment And Plan: 1. Rhabdomyolysis, unknown etiology. Serology negative so far. Continue prednisone. Follow up biopsy. 2. Hypokalemia. We will supplement. I will go ahead and discontinue IV fluid. 3. Edema. Discontinue IV fluid. 4. Deconditioning. Continue PT, OT. Time spent examining the patient [id number] reviewing data lab and an audiology placing order discussing the case with the patient discussing the case with the deboning team leader including hospitalist and nursing staff more than 55-minute AMEENA Voice ID: [id number] Report ID: [id number] MTDD
[2024-06-02] MEDS: LORazepam 2 MG/ML VIAL IV ONE (00:01)
[2024-06-02 06:05] LABS: Absolute Lymphocytes (CBC) 1.9 K/uL (0.7-4.9); Absolute Monocytes 1.6 K/uL (0.1-1.3); Absolute Neutrophil 6.3 K/uL (1.8-8.0); Basophils % 0.3 % (0-1.3); Eosinophils % 0.1 % (0-4.4); Hematocrit 31.1 % (36.0-45.0); Hemoglobin 10.6 g/dL (12.0-15.0); Lymphocytes % 19.6 % (15.3-44.8); MCH 31.2 pg (27.0-35.0); MCHC 34.1 g/dL (32.0-36.0); MCV 91.3 fL (80-100); MPV 7.3 fL (7.6-11.3); Monocytes % 16.6 % (3.3-12.3); Neutrophils % 63.4 % (41.7-73.7); Nucleated Red Blood Cells % 0.1 % (0-0); Platelets 309 thou/uL (152-406); Red Cell Distribution Width 15.3 % (12.1-15.2)
[2024-06-02 06:24] LABS: Albumin 2.2 g/dL (3.4-5.0); Albumin/Globulin Ratio 0.7 (1.1-1.8); Anion Gap 9.6 mEq/L (5.0-15.0); Bilirubin Total 0.8 mg/dL (0.2-1.0); Magnesium 2.3 mg/dL (1.6-2.4); Potassium 3.6 mEq/L (3.5-5.1); Protein, Total 5.2 g/dL (6.4-8.2)
[2024-06-02] MEDS: METHYLPREDNISOLONE 125 MG INJ IV SCH (08:32)
--- NOTE | 2024-06-02 10:03 | P.PN ---
Date of Service: 06/02/24 Subjective: feels her throat is swollen and saliva is thicker seems to be worse at certain times per patient, but difficult to discern thirsty, asking for water. afebrile ROS: 10 point ROS as noted above, otherwise negative Physical Exam: GEN: Alert, NAD, appears fatigued CV: sinus tachycardia, edema throughout, but mostly in lower extremities Pulm: Nonlabored respirations on room air, clear bilaterally Integumentary: No rashes Neuro: Normal speech, normal affect Problem List: Rhabdomyolysis, Suspect Viral myositis versus inflammatory myositis Lactic acidosis, resolved Elevated LFTs Sinus Tachycardia Dysphagia Rhabdomyolysis, Suspect Viral myositis versus inflammatory myositis Lactic acidosis, resolved Elevated LFTs patient recently admitted for acute rhabdo in setting of viral respiratory infection ~1 week ago.Patient returned home and continued to have muscle aches, generalized weakness, pains. [place] like she started getting weaker, and was less mobile so she came back. +Now reporting difficulty swallowing. Started to feel worse at home ~1 day after finishing steroids Aldolase from prior hospitalization elevated 54.8 (05/21) Nephrology consulted CPK, LFTs improving Elevated LFTs likely related to rhabdomyolysis renal u/s unremarkable. IVF dc 06/01 given 20mg IV lasix x1 06/01; another dose ordered for today NPO so switched prednisone to solumedrol IV Levaquin/Vanc dc'd (06/01) no signs of infection; Blood cx - NGTD s/p muscle biopsy with Dr. Carmona (05/31); pending results Sinus Tachycardia continue home metoprolol Monitor on telemetry Dysphagia Patient now reporting some mild dysphagia - new this hospitalization. Feels throat is swollen - not closed/obstructed, but feels affected by her swollen state, and saliva feels thicker / dry ST recommends pt. be NPO due to high risk of aspiration as pharyngeal residue builds up despite hard swallows, multiple swallows and chin tuck technique Speech is following Code: Full Dispo: Home, ~2-3 days CPK improves, tachycardia improves weakness improves Time Spent Managing Pts Care (In Minutes): 55
[2024-06-02 10:20] LABS: C-ANCA Anti-Proteinase 3 <1.0 AI (<1.0)
[2024-06-02] MEDS: FUROSEMIDE 20 MG/ 2ML VIAL IV ONE ×2 (12:24→20:35)
[2024-06-02] MEDS: METOPROLOL TARTRATE 5 MG/5 ML INJ IV STA (13:12)
[2024-06-02 13:19] LABS: Complement (CH50), Total >60 U/mL (31-60)
[2024-06-02] MEDS ORDERED: FUROSEMIDE 20 MG/ 2ML VIAL IV ONE (17:56)
[2024-06-02 19:27] LABS: Liver/Kidney Microsome Type 1 <=20.0 U (<=20.0)
--- NOTE | 2024-06-02 22:00 | PN ---
Date of Progress Note: 06/02/2024 Subjective: The patient was admitted with rhabdomyolysis secondary to myositis. The patient is status post Solu-Medrol. The patient is status post muscle biopsy, tolerated very well, feeling better, but still weak. Physical Examination: General: When I saw the patient, the patient is lying in bed comfortable. Vital Signs: Blood pressure 118/75, pulse of 93. Chest: Clear to auscultation. Heart: S1, S2. Regular. Abdomen: Soft, nontender. Extremities: Plus edema. Neuro: Alert. Muscle weakness. 5. Laboratory Data: Hemoglobin 10.6. Sodium 138, potassium 3.6, bicarb 28, BUN 15, creatinine 0.3, calcium 8.7. Current Medications: The patient is on include: 1. Metoprolol. 2. Tylenol. 3. Lasix. 4. Solu-Medrol. Assessment And Plan: 1. Rhabdomyolysis secondary to myositis. We will follow up biopsy. 2. Edema. We will give another dose of Lasix today. 3. Myositis. Waiting for the biopsy result. Continue Solu-Medrol. Given the muscle weakness, I will send for vitamin D level and we will follow up. Time spent examining the patient [id number] reviewing data lab and an audiology placing order discussing the case with the patient discussing the case with the housekeeping and laundry team leader including hospitalist and nursing staff more than 55-minute AMEENA Voice ID: [id number] Report ID: [id number] MTDJb
[2024-06-03] MEDS: PANTOPRAZOLE 40 MG INJ IVP SCH (00:07)
[2024-06-03] MEDS: MELATONIN 3 MG TABLET PO PRN (00:09)
[2024-06-03 06:55] LABS: Albumin 2.6 g/dL (3.4-5.0); Albumin/Globulin Ratio 0.8 (1.1-1.8); Anion Gap 12.8 mEq/L (5.0-15.0); Bilirubin Total 1.2 mg/dL (0.2-1.0); Globulin 3.1 g/dL (2.3-3.5); Magnesium 2.3 mg/dL (1.6-2.4); Phosphorus 4.6 mg/dL (2.5-4.9); Potassium 2.8 mEq/L (3.5-5.1); Protein, Total 5.7 g/dL (6.4-8.2)
[2024-06-03] MEDS: METHYLPRED NA SUC 1,000 MG in NA CHLORIDE 0.9% 100 ML IV SCH ×2 (09:00→13:19)
[2024-06-03] MEDS: NA CHLORIDE 0.9% 500 ML IV SCH (09:36)
[2024-06-03] MEDS: KCL 20 MEQ/100 mL IVPB 20 MEQ/100 ML BAG IV SCH (09:36)
--- NOTE | 2024-06-03 10:37 | P.PN ---
Date of Service: 06/03/24 Subjective: feeling more tired and weak, with increased body aches unable to lift right lower extremity off the bed higher than a few inches able to lift left lower extremity ~1 ft above bed thirsy, hungry. Asking for water/food. ROS: 10 point ROS as noted above, otherwise negative Physical Exam: GEN: Alert, NAD, appears fatigued CV: sinus tachycardia, edema throughout, but mostly in lower extremities Pulm: Nonlabored respirations on room air, clear bilaterally Integumentary: No rashes Neuro: Normal speech, normal affect Problem List: Rhabdomyolysis, Suspect Viral myositis versus inflammatory myositis/polymyositis Lactic acidosis, resolved Elevated LFTs Sinus Tachycardia Dysphagia Rhabdomyolysis, Suspect Viral myositis versus inflammatory myositis Lactic acidosis, resolved Elevated LFTs patient recently admitted for acute rhabdo in setting of viral respiratory infection ~1 week ago.Patient returned home and continued to have muscle aches, generalized weakness, pains. [place] like she started getting weaker, and was less mobile so she came back. +Now reporting difficulty swallowing. Started to feel worse at home ~1 day after finishing steroids Aldolase from prior hospitalization elevated 54.8 (05/21) Nephrology consulted Elevated LFTs likely related to rhabdomyolysis renal u/s unremarkable. IVF dc 06/01 given 20mg IV lasix x1 06/01, 06/02 Levaquin/Vanc dc'd (06/01) no signs of infection; Blood cx - NGTD s/p muscle biopsy with Dr. Carmona (05/31); pending results Labs slightly worse 06/03; she reports feeling more tired and weak, with increased body aches Start IV high pulse dose steroids discussed would benefit from transfer to higher level of care. patient reluctant may benefit from IVIG / immunosuppressive medication as adjunct to steroids since swallowing and weakness improving, ok to monitor today, will discuss further tomorrow Immunology and Serology work up: Rheumatoid factor (-) SARAHY (-) monoscreen (-), HIV (-), Hepatitis panel (-), Tox screen (-), Cardiolipin and complement within normal limits. Free kappa LC, lambda LC pending;anti-HMGCR and anti-SRP sent out and pending Further studies sent out, pending. Tot complement (CH50) > 60 (05/30); Anti-mitochondrial Ab 22.9 (05/30) Immunology and Serology negative so far. Muscle Biopsy pending Sinus Tachycardia oral metoprolol held given NPO s/p IV metoprolol x1 06/02 Monitor on telemetry Dysphagia Patient now reporting some mild dysphagia - new this hospitalization. Feels throat is swollen - not closed/obstructed, but feels affected by her swollen state, and saliva feels thicker / dry ST recommends pt. be NPO due to high risk of aspiration as pharyngeal residue bu ilds up despite hard swallows, multiple swallows and chin tuck technique Speech is following Code: Full Dispo: Home, ~2-3 days vs transfer for rheum CPK improves, tachycardia improves weakness improves Time Spent Managing Pts Care (In Minutes): 55
[2024-06-03 11:36] LABS: Anti-Centromere Antibody <1.0; Anti-Double Strand DNA Antibod 1 IU/mL (<=4)
[2024-06-03 14:06] LABS: Angiotensin Converting Enzyme 39 U/L (9-67)
--- NOTE | 2024-06-03 21:50 | PN ---
Date of Progress Note: 06/03/2024 Chief Complaint: Rhabdomyolysis, generalized weakness, myositis. The patient is on Solu-Medrol. She underwent muscle biopsy. Review of Systems: Denies chest pain, palpitation. She is undergoing speech therapy evaluation with swallow test. Physical Examination: Lungs: Clear to auscultation bilaterally. Extremities: Slight edema. Chest: Clear to auscultation bilaterally. Heart: S1, S2. Abdomen: Soft. Impression And Plan: 1. Myositis. Biopsy results are pending. Continue Solu-Medrol. Monitor vitamin D level and continue supplementation. 2. Edema. The patient is on Lasix. 3. Hypokalemia. Replacement supplementation is ordered. 4. Elevated CK level, rhabdomyolysis with myositis. Serology tests were done. JONY/ANTONI Voice ID: [id number] Report ID: [id number] MARÍA
[2024-06-04 05:50] LABS: Absolute Lymphocytes (CBC) 0.8 K/uL (0.7-4.9); Absolute Monocytes 0.3 K/uL (0.1-1.3); Absolute Neutrophil 7.5 K/uL (1.8-8.0); Basophils % 0.1 % (0-1.3); Hematocrit 31.1 % (36.0-45.0); Hemoglobin 10.6 g/dL (12.0-15.0); MCH 31.3 pg (27.0-35.0); MCHC 34.1 g/dL (32.0-36.0); MCV 91.6 fL (80-100); MPV 7.4 fL (7.6-11.3); Neutrophils % 87.9 % (41.7-73.7); Nucleated Red Blood Cells % 0.1 % (0-0); Platelets 287 thou/uL (152-406)
[2024-06-04 06:16] LABS: Albumin 2.5 g/dL (3.4-5.0); Albumin/Globulin Ratio 0.8 (1.1-1.8); Anion Gap 11.8 mEq/L (5.0-15.0); Bilirubin Total 0.9 mg/dL (0.2-1.0); C-Reactive Protein 5.21 mg/L (<3.00); Globulin 3.2 g/dL (2.3-3.5); Magnesium 2.4 mg/dL (1.6-2.4); Phosphorus 4.1 mg/dL (2.5-4.9); Potassium 3.8 mEq/L (3.5-5.1); Protein, Total 5.7 g/dL (6.4-8.2)
[2024-06-04 08:18] LABS: Anisocytosis 1+; Blood Morphology Comment NOTED (NOT SEEN); Macrocytosis 1+; Microcytosis SLIGHT; Platelet Estimate ADEQ; Polychromasia SLIGHT; White Blood Cell Scan OK (OK)
--- NOTE | 2024-06-04 08:34 | P.PN ---
Date of Service: 06/04/24 Subjective: feeling significantly better this morning sitting up in bed, eating breakfast. Feels she has more strength/energy lower extremity swelling improving denies any new / worsening problems ROS: 10 point ROS as noted above, otherwise negative Physical Exam: GEN: Alert, NAD, appears fatigued CV: sinus tachycardia, edema throughout, but mostly in lower extremities Pulm: Nonlabored respirations on room air, clear bilaterally Integumentary: No rashes Neuro: Normal speech, normal affect Problem List: Rhabdomyolysis, Suspect Viral myositis versus inflammatory myositis/polymyositis Lactic acidosis, resolved Elevated LFTs Sinus Tachycardia Dysphagia, resolved Rhabdomyolysis, Suspect Viral myositis versus inflammatory myositis Lactic acidosis, resolved Elevated LFTs patient recently admitted for acute rhabdo in setting of viral respiratory infection ~1 week ago.Patient returned home and continued to have muscle aches, generalized weakness, pains. [place] like she started getting weaker, and was less mobile so she came back. +Now reporting difficulty swallowing. Started to feel worse at home ~1 day after finishing steroids Aldolase from prior hospitalization elevated 54.8 (05/21) Elevated LFTs likely relate to rhabdomyolysis/myositis Renal u/s unremarkable. Nephrology is following Levaquin/Vanc dc'd (06/01) no signs of infection; Blood cx - NGTD s/p muscle biopsy with Dr. Carmona (05/31); pending results - sent to [facility] 06/03 Labs slightly worse. She reports feeling more tired and weak, with increased body aches Started on IV high pulse dose steroids 06/03; continue for now discussed would benefit from transfer to higher level of care - given prolonged course and debility, may benefit from DMARD may benefit from IVIG / immunosuppressive medication as adjunct to steroids 06/04 She reports feeling significant better this morning. Sitting up in bed, eating breakfast. Feels she has more strength/energy. +swelling improving continue to monitor for now, will see how she does throughout the day given her improvement. Immunology and Serology work up: Negative: Rf, SARAHY, monoscreen, HIV, Hepatitis panel, Negative: Tox screen Anti-Smooth Muscle Ab: <20 Anti-Centromere Ab: 1 Anti-Proteinase 3: <1 Anti-Mitochondrial Ab: 22.9 Complement C3: 95, Complement C4: 21 Tot complement (CH50): >60 Cardiolipin within normal limits. Liver/Kidney Microsome 1Ab: <20 Immunofix Electrophoresis with normal pattern. Free kappa LC, lambda LC pending anti-HMGCR and anti-SRP sent out and pending Anti-streptolysin O Ab pending biopsy results pending - sent to [facility] Sinus Tachycardia continue oral metoprolol 25 mg BID Monitor on telemetry Dysphagia, resolved Patient now reporting some mild dysphagia - new this hospitalization. felt throat was swollen - not closed/obstructed, but feels affected by her swollen state, and saliva feels thicker / dry ST recommended pt. be NPO due to high risk of aspiration as pharyngeal residue 06/01 Patient re-evaluated by speech on 06/03. There were no overt s/s of aspiration and patient was cleared for regular diet, thin liquids. Speech is following tolerating diet without issue now Code: Full Dispo: Home, ~2-3 days vs transfer for rheum symptoms improve continue high dose / pulse dosed steroids Time Spent Managing Pts Care (In Minutes): 55
--- NOTE | 2024-06-04 12:31 | CON ---
Date of Consultation: 05/31/2024 History Of Present Illness: The patient is a 23-year-old female with no past medical histor y, who presents for acute rhabdomyolysis in set of upper respiratory tract infection, started on empi alvaro steroids as well as IV fluids, and her CPK was elevated. She was discharged prior several days, and she said she went home and did have muscle aches, generalized body pain, weakness, and soreness o f her muscles, and as such she returned. She additionally states she has some difficulty swallowing concomitant, which was a progression from her previous symptoms of weakness, which seemed to be getti ng progressively worse, and as such, Medical Team has seen the patient and is working her up currentl y for rhabdomyolysis of uncertain etiology and requested me to see the patient for a muscle biopsy. Past Medical History: Negative. Past Surgical History: Vaginal delivery and no . Allergies: AMPICILLIN. Home Medications: Included Lopressor and prednisone after recent discharge. Social History: She denies smoking, alcohol, or recreational drug use. Family History: She has a family history of a gynecologic cancer of uncertain etiology in her mother . Review of Systems: Ten-point review of systems other than HPI denies. Physical Examination: Vital Signs: At time of my examination, her blood pressure was 117/75, pulse is 94, respiratory rate 20, temperature was 98.1. She was in no pain. Her sats were 98% on room air. General: She is awake, alert, oriented. Psychiatric: She is appropriate. Conversive. HEENT: Normocephalic. Sclerae icteric. Mucous membranes are moist. Oropharynx clear. Neck: Supple. No JVD. Chest: Normal expansion and excursion. Cardiovascular: Regular rate and rhythm. Pulmonary: Clear to auscultation bilaterally. Abdomen: Soft. No rebound. No guarding. No focal peritonitis. Extremities: No clubbing, cyanosis, or edema. She has only mild soreness with palpation of her musc les, particularly worse in her thighs she states. Skin: Warm and dry. No skin lesions appreciated. Laboratory Data: White blood cell count is 9.6, hemoglobin is 10.6, hematocrit 30.8, neutrophils are 84%, her platelet count was 285. Her sodium 137, potassium 4.0, chloride 103, carbon dioxide 29, BU N was 12, creatinine 0.28, glucose was 124. Her lactic acid was 4.2 at its peak and now is 1.7. Reuben cium is 8.9. Total bilirubin was 0.4 at admission and now 0.7, AST and ALT were elevated and are samuel nding down, currently 363, ALT is 174, alkaline phosphatase was normal and is currently 63. Her LDH was 523 down from 687. Her CK was 9415 on admission, now 4599. CRP was 8.56. Her vitamin D level w as 26.1. 25-OH vitamin D was 26.1. Beta HCG is negative less than 1. PTH was 73.2, cortisol level was 5.19. Her antimitochondrial antibody was 22.9. Total greater than 60. Assessment And Plan: This is a 23-year-old female who comes in with rhabdomyolysis of uncertain etio logy. I am requested for a muscle biopsy of the patient. As such, we have discussed an incision and biopsy of the right vastus lateralis quadriceps muscle. I have explained the risks, benefits, and a lternatives including weakness of this extremity, nerve injury, bleeding, infection, damage to surrou nding tissue, need further operative procedures. The patient displayed understanding of the above-st ated plan and agrees to proceed as indicated. MOON/ANTONI Voice ID: [id number] Report ID: [id number]
[2024-06-04 22:06] LABS: Myoglobin 485 mcg/L (<=66)
--- NOTE | 2024-06-04 23:47 | PN ---
Date of Progress Note: 06/04/2024 Subjective: Patient feels better. CPK is stable. Continue steroids and follow up the biopsy result s. Objective: Vital Signs: Temperature 97.8, pulse rate 113, blood pressure 131/71. General: Awake and alert, not in distress. Neck: Supple. No elevated JVD. Heart: Tachycardia. Normal S1, S2. Chest: Clear to auscultation bilaterally. No rales or wheezes. Abdomen: Soft, nontender. Extremities: No edema. Laboratory Data: White count 8.5, hemoglobin of 10. Sodium 137, potassium 3.8, BUN 18, creatinine 0 .4. AST 219, ALT 150. CPK 3200. Assessment And Plan: 1. Rhabdomyolysis, unclear etiology, due to polymyositis and dermatomyositis. Followup renal biopsy results. Serology workup showed SARAHY, ANCA, and serology were negative. Continue IV fluid. 2. Elevated LFTs, due to rhabdomyolysis. 3. Anemia of chronic disease. Monitor H and H. Thanks for allowing me to participate in the patient's care. Total time spent 55 minute including do cumentation, reviewing labs, and placing orders. KIRSTY/ANTONI Voice ID: [id number] Report ID: [id number]
[2024-06-05 06:11] LABS: ALT/SGPT 144 U/L (13-56); AST/SGOT 244 U/L (15-37); Albumin 2.6 g/dL (3.4-5.0); Albumin/Globulin Ratio 0.8 (1.1-1.8); Alkaline Phosphatase 49 U/L (45-117); Anion Gap 8.6 mEq/L (5.0-15.0); BUN Blood Urea Nitrogen 19 mg/dL (7-18); Bicarbonate 30 mEq/L (21-32); Bilirubin Total 0.9 mg/dL (0.2-1.0); Globulin 3.2 g/dL (2.3-3.5); Glomerular Filtration Rate 149 ml/min (=/>90); Glucose Level 115 mg/dL (74-106); Magnesium 2.3 mg/dL (1.6-2.4); Potassium 3.6 mEq/L (3.5-5.1); Protein, Total 5.8 g/dL (6.4-8.2); Sodium Level 141 mEq/L (136-145)
[2024-06-05 06:13] LABS: C-Reactive Protein < 2.90 mg/L (<3.00)
[2024-06-05 06:25] LABS: Creatine Phosphokinase 1930 U/L (26-192)
--- NOTE | 2024-06-05 09:08 | P.PN ---
Date of Service: 06/05/24 Subjective: feeling better overall today diffuse msk pains and body aches improving. Not as severe strength improving ambulating with assistance, improved compared to few days ago HR up to 120s yesterday with ambulation. no SOB with activity HR overnight improved ROS: 10 point ROS as noted above, otherwise negative Physical Exam: GEN: Alert, NAD CV: regular rate/rhythm, trace lower extremity edema Pulm: Nonlabored respirations on room air, clear bilaterally Integumentary: No rashes Str: 4 to 4+/5 in hips, 4+ to 5 in shoulders, distal extremities 5/5. L hip asdductor weaker compared to R hip Neuro: Normal speech, normal affect Problem List: Rhabdomyolysis, Suspect Viral myositis versus inflammatory myositis/polymyositis Lactic acidosis, resolved Elevated LFTs secondary to above Sinus Tachycardia secondary to above Dysphagia, resolved (secondary to above) Rhabdomyolysis, Suspect Viral myositis versus inflammatory myositis Lactic acidosis, resolved Elevated LFTs patient recently admitted for acute rhabdo in setting of viral respiratory infection ~1 week ago.Patient returned home and continued to have muscle aches, generalized weakness, pains. [place] like she started getting weaker, and was less mobile so she came back. +Now reporting difficulty swallowing. Started to feel worse at home ~1 day after finishing steroids Levaquin/Vanc dc'd (06/01) no signs of infection; Blood cx - NGTD s/p muscle biopsy with Dr. Carmona (05/31); pending results - sent to [facility] 06/03 Labs slightly worse. She reports feeling more tired and weak, with in creased body aches Started on IV high pulse dose steroids 06/03-06/05 for 3 days Restart oral prednisone 60 mg daily on 06/06 noted significant improvement in symptoms taper to 60mg daily most likely polymyositis - which would lead to a long taper - possibly 6-12 months. 60mg prednisone daily x 4-6 weeks. then slow taper each week discussed would benefit from transfer to higher level of care - given prolonged course and debility, may benefit from DMARD no hospitals with rheum market research consultant this weekend patient now with significant improvement can possibly hold on transfer, and pt will need to f/u with rheum as soon as possible as outpatient discussed will likely needs months of steroids and follow up Patient reports significant daily improvement since starting IV high pulse dose steroids 06/03. Feels she has more strength/energy. Now ambulating with assistance. MSK pains/Body aches improving. Dysphagia resolved. continue to monitor for now CPK down to 1930; CRP resolved (2/2) Immunology and Serology work up: Negative: Rf, SARAHY, monoscreen, HIV, Hepatitis panel Negative: Tox screen Anti-Smooth Muscle Ab: <20 Anti-Centromere Ab: 1 Anti-Proteinase 3: <1 Anti-Mitochondrial Ab: 22.9 Complement C3: 95, Complement C4: 21 Tot complement (CH50): >60 Cardiolipin within normal limits. Liver/Kidney Microsome 1Ab: <20 Immunofix Electrophoresis with normal pattern. Free kappa LC, lambda LC pending anti-HMGCR and anti-SRP sent out and pending Anti-streptolysin O Ab pending Aldolase from prior hospitalization elevated 54.8 (05/21) biopsy results pending - sent to [facility] She will need close follow up with mri specialist on discharge for further work up. Sinus Tachycardia Improved continue oral metoprolol 25 mg BID Monitor on telemetry Dysphagia, resolved Code: Full Dispo: Home, ~2-3 days symptoms improve Transition and monitor for ~48 hrs on oral prednisone Time Spent Managing Pts Care (In Minutes): 55
[2024-06-05 13:47] LABS: VITAMIN B1-THIAMINE (WB) 155 nmol/L (78-185)
[2024-06-06 07:10] LABS: Anti-Streptolysin O Antibody 100 IU/mL (<200); Complement C3 163 mg/dL (83-193)
[2024-06-06 07:37] LABS: ALT/SGPT 136 U/L (13-56); AST/SGOT 191 U/L (15-37); Albumin 2.7 g/dL (3.4-5.0); Albumin/Globulin Ratio 0.9 (1.1-1.8); Alkaline Phosphatase 63 U/L (45-117); Anion Gap 6.6 mEq/L (5.0-15.0); BUN Blood Urea Nitrogen 17 mg/dL (7-18); Bicarbonate 29 mEq/L (21-32); Bilirubin Total 0.8 mg/dL (0.2-1.0); Creatine Phosphokinase 1328 U/L (26-192); Globulin 3.1 g/dL (2.3-3.5); Glomerular Filtration Rate 148 ml/min (=/>90); Glucose Level 101 mg/dL (74-106); Magnesium 2.3 mg/dL (1.6-2.4); Potassium 3.6 mEq/L (3.5-5.1); Protein, Total 5.8 g/dL (6.4-8.2); Sodium Level 139 mEq/L (136-145)
[2024-06-06 07:40] LABS: C-Reactive Protein < 2.90 mg/L (<3.00)
--- NOTE | 2024-06-06 08:57 | P.PN ---
Date of Service: 06/06/24 Subjective: continues with daily improvement ambulating to restroom and around the floor lower extremity strength slowly improving. Able to lift legs a little higher out of bed body aches less severe no acute events overnight ROS: 10 point ROS as noted above, otherwise negative Physical Exam: GEN: Alert, NAD CV: regular rate/rhythm, trace lower extremity edema Pulm: Nonlabored respirations on room air, clear bilaterally Integumentary: No rashes Str: 4 to 4+/5 in hips, 4+ to 5 in shoulders, distal extremities 5/5. L hip asdductor weaker compared to R hip Neuro: Normal speech, normal affect Problem List: Rhabdomyolysis, Suspect Viral myositis versus inflammatory myositis/polymyositis Lactic acidosis, resolved Elevated LFTs secondary to above Sinus Tachycardia secondary to above Dysphagia, resolved (secondary to above) Rhabdomyolysis, Suspect Viral myositis versus inflammatory myositis/polymyositis Lactic acidosis, resolved Elevated LFTs patient recently admitted for acute rhabdo in setting of viral respiratory infection ~1 week ago.Patient returned home and continued to have muscle aches, generalized weakness, pains. [place] like she started getting weaker, and was less mobile so she came back. +Now reporting difficulty swallowing. Started to feel worse at home ~1 day after finishing steroids Levaquin/Vanc dc'd (06/01) no signs of infection; Blood cx - NGTD s/p muscle biopsy with Dr. Carmona (05/31); pending results - sent to [facility] 06/03 Labs slightly worse. She reports feeling more tired and weak, with increased body aches s/p 3 days of IV high pulse dose steroids (06/03-06/05) Restart oral prednisone 60 mg daily (/) Noted significant improvement in symptoms Taper to 60mg daily Most likely polymyositis - which would lead to a long taper - possibly 6-12 months. 60mg prednisone daily x 4-6 weeks. then slow taper each week discussed would benefit from transfer to higher level of care - given prolonged course and debility, may benefit from DMARD no hospitals with rheum merchandise presentation associate this weekend patient now with significant improvement can possibly hold on transfer, and pt will need to f/u with rheum as soon as possible as outpatient discussed will likely needs months of steroids and follow up Patient reports significant daily improvement since starting IV high pulse dose steroids 06/03. Feels she has more strength/energy. Now ambulating with assistance. MSK pains/Body aches improving. Dysphagia resolved. CPK down to 1328 (2/) Immunology and Serology work up: Negative: Rf, SARAHY, monoscreen, HIV, Hepatitis panel Negative: Tox screen Anti-Smooth Muscle Ab: <20 Anti-Centromere Ab: 1 Anti-Proteinase 3: <1 Anti-Mitochondrial Ab: 22.9 Complement C3: 95, Complement C4: 21 Tot complement (CH50): >60 Cardiolipin within normal limits. Liver/Kidney Microsome 1Ab: <20 Immunofix Electrophoresis with normal pattern. Free kappa LC, lambda LC pending anti-HMGCR and anti-SRP sent out and pending Anti-streptolysin O Ab pending Aldolase from prior hospitalization elevated 54.8 (05/21) biopsy results pending - sent to [facility] She will need close follow up with administration specialist on discharge for further work up. Sinus Tachycardia Improved continue oral metoprolol 25 mg BID Monitor on telemetry Code: Full Dispo: Home, ~2-3 days symptoms improve Transition and monitor for ~48 hrs on oral prednisone Time Spent Managing Pts Care (In Minutes): 55
[2024-06-06] MEDS: predniSONE 20 MG TAB PO SCH (09:36)
[2024-06-06] MEDS: POTASSIUM CL SA 10 MEQ TAB PO ONE (09:37)
[2024-06-06 10:44] LABS: PRA,LC/MS/MS 16.46 ng/mL/h (0.25-5.82)
[2024-06-07 05:12] LABS: ALT/SGPT 115 U/L (13-56); AST/SGOT 139 U/L (15-37); Albumin 2.7 g/dL (3.4-5.0); Albumin/Globulin Ratio 0.9 (1.1-1.8); Alkaline Phosphatase 62 U/L (45-117); Anion Gap 6.6 mEq/L (5.0-15.0); BUN Blood Urea Nitrogen 19 mg/dL (7-18); Bicarbonate 30 mEq/L (21-32); Bilirubin Total 0.9 mg/dL (0.2-1.0); Creatine Phosphokinase 855 U/L (26-192); Glomerular Filtration Rate 149 ml/min (=/>90); Glucose Level 73 mg/dL (74-106); Magnesium 2.2 mg/dL (1.6-2.4); Potassium 3.6 mEq/L (3.5-5.1); Protein, Total 5.7 g/dL (6.4-8.2); Sodium Level 139 mEq/L (136-145)
[2024-06-07 05:25] LABS: C-Reactive Protein < 2.90 mg/L (<3.00)
[2024-06-07] MEDS: predniSONE 20 MG TAB PO ONE (09:12)
[2024-06-07] MEDS: POTASSIUM CL SA 10 MEQ TAB PO ONE (11:09)
--- NOTE | 2024-06-07 14:24 | PN ---
Date of Progress Note: 06/06/2024 Chief Complaint: Rhabdomyolysis. Subjective: CPK is stabilizing. The patient is on steroids and biopsy of the muscle musc le weakness. Review of Systems: Denies new complaints. Physical Examination: Lungs: Clear to auscultation bilaterally. Heart: S1, S2. Abdomen: Soft. Extremities: No edema. Impression And Plan: 1. Rhabdomyolysis, etiology unclear, possibly due to polymyositis and dermatomyositis. The patient h ad muscle biopsy and plan is to follow up on biopsy results. Serology workup shows SARAHY, ANCA tests a re negative. Continue IV fluids. 2. Elevated liver function tests due to rhabdomyolysis. 3. Anemia of chronic disease. Monitor hemoglobin and hematocrit. JONY/ANTONI Voice ID: [id number] Report ID: [id number]
--- NOTE | 2024-06-07 14:33 | P.DS ---
Admission Date: 05/30/24 Discharge Date: 06/07/24 Disposition: ROUTINE DISCHARGE Discharge Condition: FAIR Reason for Admission: Muscle aches Hospital Course: Discharge diagnosis Rhabdomyolysis Myositis Sinus tachycardia Patient was recently admitted for acute rhabdo in setting of viral respiratory infection (05/15-05/25). She was being treated with high dose prednisone to cover suspected viral/inflammatory myositis. Patient returned home and continued to have muscle aches, generalized weakness, pains. She reported she started to feel weaker ~1 day after completing her steroids, became less mobile and started to feel her throat swelling up so she came back. Patient also developed dysphagia. Creatinine kinase on admission 9415 (05/29). Aldolase from prior hospitalization came back elevated 54.8 (05/21) LFTs were elevated on admission, suspect Elevated LFTs likely related to rhabdomyolysis. She was started on IV fluids, received high-dose Solu-Medrol followed by high dose prednisone (60 mg) and had improvement of her symptoms. Renal ultrasound was unremarkable. Immunology and Serology results so far from last 2 hospitalization noted. Patient underwent muscle Biopsy with Dr. Carmona on 05/31. Muscle biopsy was sent to [facility], results pending to be followed. Patient suspected to have polymyositis. An attempt was made to transfer patient for higher level of care, given prolonged course and debility, to be evaluated for DMARD however there were no hospitals with rheum principal solutions architect over the weekend. (06/03-06/05) Given her significant improvement on steroids, patient is discharge with prolong prednisone taper.she is strongly advised follow up with Rheumatolgoy [facility] to which patient and family were agreeable to. Medications: 60mg prednisone daily x 2 weeks. then slow taper each week Follow up: PCP 3-5 days Rheumatology As soon as possible Please call to schedule / confirm appointments Vital Signs/Physical Exam: Temp Pulse Resp BP Pulse Ox 98.0 F 102 H 16 116/66 99 06/07/24 12:00 06/07/24 12:06/07/24 12:06/07/24 12:06/07/24 12:00 General: Alert, In no apparent distress, Oriented x3 HEENT: Mucous membr. moist/pink Neck: Supple, JVD not distended Respiratory: Clear to auscultation bilaterally, Normal air movement Cardiovascular: No edema, Regular rate/rhythm, Normal S1 S2 Gastrointestinal: Normal bowel sounds, Soft and benign, Non-distended Musculoskeletal: No swelling Integumentary: No rashes, No cyanosis Neurological: Normal strength at 5/5 x4 extr Laboratory Data at Discharge: WBC 8.50 thou/uL (4.3-10.9) 06/04/24 04:49 Hgb 10.6 g/dL (12.0-15.0) L 06/04/24 04:49 Hct 31.1 % (36.0-45.0) L 06/04/24 04:49 Plt Count 287 thou/uL (152-406) 06/04/24 04:49 PT 9.4 SECONDS (9.4-12.5) 05/29/24 23:25 INR 0.89 05/29/24 23:25 APTT 25.7 SECONDS (24.3-36.9) 05/30/24 01:50 Sodium 139 mEq/L (136-145) 06/07/24 04:25 Potassium 3.6 mEq/L (3.5-5.1) 06/07/24 04:25 BUN 19 mg/dL (7-18) H 06/07/24 04:25 Creatinine 0.32 mg/dL (0.55-1.02) L 06/07/24 04:25 Glucose 73 mg/dL (74-106) L 06/07/24 04:25 Phosphorus 3.0 mg/dL (2.5-4.9) 06/05/24 05:03 Magnesium 2.2 mg/dL (1.6-2.4) 06/07/24 04:25 Total Bilirubin 0.9 mg/dL (0.2-1.0) 06/07/24 04:25 AST 139 U/L (15-37) H 06/07/24 04:25 ALT 115 U/L (13-56) H 06/07/24 04:25 Alkaline Phosphatase 62 U/L (45-117) 06/07/24 04:25 Cholesterol 133 mg/dL (<200) 05/30/24 16:10 Home Medications: Metoprolol Tartrate [Lopressor*] 25 mg PO BID 6AM 6PM #60 tab 06/07/24 predniSONE [Deltasone*] 10 mg PO DAILY #133 tab 06/07/24 New Medications: predniSONE [Deltasone*] 10 mg PO DAILY #133 tab Metoprolol Tartrate [Lopressor*] 25 mg PO BID 6AM 6PM #60 tab Physician Discharge Instructions: Physician discharge instructions: Patient was recently admitted for acute rhabdo in setting of viral respiratory infection (05/15-05/25). She was being treated with high dose prednisone to cover suspected viral/inflammatory myositis. Patient returned home and continued to have muscle aches, generalized weakness, pains. She reported she started to feel weaker ~1 day after completing her steroids, became less mobile and started to feel her throat swelling up so she came back. Creatinine kinase on admission 9415 (05/29). Aldolase from prior hospitalization came back elevated 54.8 (05/21) LFTs were elevated on admission, suspect Elevated LFTs likely related to rhabdomyolysis. She was started on IV fluids and high dose prednisone (60 mg) and had improvement of her symptoms. Renal ultrasound was unremarkable. Immunology and Serology results so far from last 2 hospitalization noted below. Patient underwent muscle Biopsy with Dr. Carmona on 05/31. Muscle biopsy was sent to [facility], results pending upon discharge. On 06/03, patient reported feeling more tired and weak, with increased body a ches. She was started on IV high pulse dose steroids to treat suspected polymyositis. She felt significant daily improvement since starting IV high pulse dose steroids 06/03. She felt her energy/strength starting to return, now ambulating with assistance for the first time since admission. Dysphagia resolved with steroids, and felt her body aches were more tolerable and less severe. She received 3 days of IV high dose pulse steroids (06/03-06/05). IV steroids were deescalated to oral prednisone 60 mg and patient continued to improve. Given suspected polymyositis, discussed with patient she will likely need a prolonged steroid taper - up to 6-12 months course (60 mg prednisone daily x4-6 weeks then slowly taper down each week). Initially trying to transfer for higher level of care, given prolonged course and debility, may benefit from DMARD however there were no hospitals with rheum principal solutions architect over the weekend. (06/03-06/05) Given her significant improvement on IV steroids, can hold off on transfer with plan to discharge with prolong prednisone taper, close follow up with Rheumatology [facility] to which patient and family were agreeable too. Medications: 60mg prednisone daily x 2 weeks. Follow up: PCP 3-5 days Rheumatology As soon as possible Please call to schedule / confirm appointments Immunology and Serology work up: Negative: Rf, SARAHY, monoscreen, HIV, Hepatitis panel Negative: Tox screen Anti-Smooth Muscle Ab: <20 Anti-Centromere Ab: 1 Anti-Proteinase 3: <1 Anti-Mitochondrial Ab: 22.9 Complement C3: 95, Complement C4: 21 Tot complement (CH50): >60 Cardiolipin within normal limits. Liver/Kidney Microsome 1Ab: <20 Immunofix Electrophoresis with normal pattern. Free kappa LC, lambda LC pending anti-HMGCR and anti-SRP sent out and pending Anti-streptolysin O Ab pending Aldolase from prior hospitalization elevated 54.8 (05/21) biopsy results pending - sent to [facility] She will need close follow up with human resources operations specialist on discharge for further work up. Advised patient to take discharge packet with Immunology and Serology work up to her follow up appointment with Rheumatology. Followup: NONE,NONE [Primary Care Provider] - 1 Week Time spent managing pt's care (in minutes): 42
[2024-06-07 14:58] LABS: 1,25 Dihydroxy Vitamin D3 13 pg/mL; Vitamin D 1,25-Dihydroxy Total 29 pg/mL (18-72); Vitamin D,1,25-OH2, D2 16 pg/mL
--- NOTE | 2024-06-07 15:25 | PN ---
Date of Progress Note: 06/07/2024 Subjective: The patient was admitted to the hospital with rhabdomyolysis. The patient treated, recovered. The patient is ambulating. Passed the swallow. Physical Examination: Vital Signs: Blood pressure 103/52, pulse of 89. Chest: Clear to auscultation. Heart: S1, S2. Regular. Abdomen: Soft, nontender. Extremities: No edema. Laboratory Data: Hemoglobin 10.6. Sodium 139, potassium 3.6, bicarb 30, BUN 19, creatinine 0.3, calcium 8.7. Current Medications: The patient on include metoprolol, Tylenol, prednisone, Zofran, melatonin. Assessment And Plan: 1. Acute kidney injury secondary to rhabdo, recover, resolve. 2. Hypokalemia. We will supplement. 3. Rhabdomyolysis/myositis, follow up kidney biopsy. Continue prednisone. Time spent examining the patient [id number] reviewing data lab and an audiology placing order discussing the case with the patient discussing the case with the rn team leader including hospitalist and nursing staff more than 55-minute AMEENA Voice ID: [id number] Report ID: [id number] MARÍA
[2024-06-07 15:52] VITALS: O2SAT 98
[2024-06-07 17:10] VITALS: BP 140/92; TEMP 97.7
[2024-06-15 14:57] LABS: 1,25 Dihydroxy Vitamin D3 38 pg/mL; Vitamin D 1,25-Dihydroxy Total 74 pg/mL (18-72); Vitamin D,1,25-OH2, D2 36 pg/mL
== END 2024-06-07 17:59 | disposition home or self-care (01) | DRG 351 ==
LOC: ER 21:13 → ERHOLD 05-30 02:44 → 2ND 05-30 15:05
PROVIDERS: ADMIT Internal Medicine; ATTEND Internal Medicine
PROC: 0KBQ0ZX Excision of Right Upper Leg Muscle, Open Approach, Diagnostic (ICD-10-PCS; principal; 2024-05-31 11:30)
DX: M62.82 Rhabdomyolysis (principal); G72.81 Critical illness myopathy; N17.9 Acute kidney failure, unspecified; E87.20 Acidosis, unspecified; E87.1 Hypo-osmolality and hyponatremia; R65.10 Systemic inflammatory response syndrome (SIRS) of non-infectious origin without acute organ dysfunction; E87.6 Hypokalemia; I10 Essential (primary) hypertension; D63.8 Anemia in other chronic diseases classified elsewhere; R94.5 Abnormal results of liver function studies; R60.9 Edema, unspecified; R13.10 Dysphagia, unspecified; R00.0 Tachycardia, unspecified; Z88.1 Allergy status to other antibiotic agents; Z79.52 Long term (current) use of systemic steroids; Z79.899 Other long term (current) drug therapy
CPT/HCPCS: 36415; 71045; 74230; 76770; 80048; 80053; 80076; 80202; 80307; 81001; 81025; 82088; 82140; 82164; 82306; 82465; 82533; 82550; 82570; 82607; 82652; 82947; 83519; 83605; 83615; 83735; 83874; 83880; 83970; 84100; 84156; 84244; 84425; 84484; 84702; 85025; 85027; 85610; 85730; 86015; 86021; 86060; 86140; 86160; 86162; 86225; 86255; 86256; 86308; 86376; 86430; 87040; 87070; 87081; 87389; 87804; 87811; 88300; 92526; 92610; 92611; 93005; 96361; 96365; 96375; 97116; 97161; 97530; 99285; J0696; J1100; J1200; J1940; J2003; J2250; J2270; J2405; J2470; J2704; J2919; J3010; J3480; J7030; J7040; J7050; J7120; J7512